=== PATIENT | female | born 1950 | race Caucasian/White ===

== ENCOUNTER 2016-10-13 18:22 | Inpatient (IN) | payer OTHER ==
[~2016-10-13] VITALS: Ht 162.6 cm; Wt 94.3 kg
[~2016-10-13 18:22] MED LIST: CARDIZEM60 M1 PO; COUMADIN6 M1 PO; FUROSEMIDE40 M1 PO; LEVOTHYROXINE137 MCG PO; LOPRESSOR100 M1 PO; METOPROLOL TART50 M1 PO
[2016-10-13 19:08] LABS: ABSOLUTE BASOPHIL COUNT 0 /CUMM (0.0-0.2); ABSOLUTE EOSINOPHIL COUNT 0 /CUMM (0.0-0.7); ABSOLUTE GRANULOCYTE CT 5.1 /CUMM (1.4-6.5); ABSOLUTE LYMPH COUNT 1.1 /CUMM (1.2-3.4); ABSOLUTE MONOCYTE COUNT 0.9 /CUMM (0.10-0.60); BASOPHIL % 0.4 % (0.0-2.0); EOSINOPHIL % 0.6 % (0-5); GRANULOCYTE % 71.5 % (42.2-75.2); HEMATOCRIT 41.6 % (37-47); MEAN CORPUSCULAR HGB 25.8 PG (27.0-31.0); MEAN CORPUSCULAR HGB CONC 31.6 G/DL (33.0-37.0); MEAN CORPUSCULAR VOLUME 81.4 FL (81.0-99.0); MEAN PLATELET VOLUME 8.1 FL (7.4-10.4); PLATELET COUNT 239 /CUMM (130-400); RBC DISTRIBUTION WIDTH 20.1 % (11.5-14.5); RED BLOOD CELL CT 5.11 /CUMM (4.20-5.40); WHITE BLOOD CELL COUNT 7.1 /CUMM (4.8-10.8)
--- NOTE | 2016-10-13 20:36 | ED GENERAL ADULT ---
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 ENGINEER WATERWORKS FOR FLUIDS IN LEGS Source: patient, old records Exam Limitations: no limitations Vital Signs & Intake/Output Vital Signs & Intake/Output Vital Signs Date Time Temp Pulse Resp B/P Pulse O2 O2 Flow FiO2 Ox Delivery Rate 10/13 2328 97.6 100 20 104/78 100 Nasal 2.0L Cannula 10/13 2319 99 Nasal 2.0L Cannula 10/13 2244 98.0 104 16 119/73 97 Nasal 2.0L Cannula 10/13 2137 98 Nasal 2.0L Cannula 10/13 2109 103 22 94 Nasal 2.0L Cannula 10/13 2106 97.6 105 22 121/73 89 Room Air 10/13 1839 97.3 106 20 117/75 94 Room Air Allergies Coded Allergies: No Known Allergies (04/21/16) Reconcile Medications Diltiazem HCl (Cardizem) 60 MG TABLET 1 TAB PO BID HEART (Reported) Furosemide 40 MG TABLET 1 TAB PO DAILY FLUID RETENTION Levothyroxine Sodium 137 MCG TABLET 1 TAB PO DAILY AC THYROID (Reported) Metoprolol Tartrate (Lopressor) 100 MG TABLET 1 TAB PO BID HTN (Reported) Warfarin Sodium (Coumadin) 6 MG TABLET 1 TAB PO 1700 BLOOD THINNER (Reported) Triage Note: PT WAS REFERED TO THE ED FOR EVALUATION SECONDARY TO BILATERAL LOWER EXTREMITIES SWELLING. + HX OF CHF. DENIED SOB. 94% RA. Triage Nurses Notes Reviewed? yes HPI: Patient is a 66-year-old female sent in from the CHF clinic for evaluation of abdominal distention, bilateral lower extremity edema, fluid oozing from bilateral lower extremities. Patient reports that she takes 40 mg of furosemide daily and also discussed the CHF clinic for IV diuresis with no improvement. Patient's speeder worker recommended patient come to the emergency department for further evaluation. Positive dyspnea with exertion and orthopnea. Patient reports that she has gained 2 pounds today. Dyspnea is mild at rest, severe with exertion. Patient reports that over the past couple of days she has been having clear fluid oozing from bilateral lower extremities and has redness to her right lower extremity. Patient denies fevers, chest pain, abdominal pain. (CRISTIAN PELAYO,SUMIT) Past History Travel History Traveled to [place] past 21 day No Medical History Any Pertinent Medical History? see below for history Neurological: vertigo EENT: NONE Cardiovascular: AFIB, hypertension Respiratory: NONE Gastrointestinal: NONE Hepatic: fatty liver on imaging studies Renal: NONE Musculoskeletal: NONE Psychiatric: NONE Endocrine: HYPOTHYROIDISM Blood Disorders: NONE Cancer(s): NONE NAIL SPECIALIST/Reproductive: NONE Other Medical Hx: vitiligo History of MRSA: No History of VRE: No History of CDIFF: No Pneumonia Vaccine: 09/14/14 Influenza Vaccine: 08/26/16 Surgical History Surgical History: non-contributory Psychosocial History Who do you live with Significant Other Services at Home None What is your primary language Mauritian Tobacco Use: Quit >30 days ago Family History Family History, If Any: FATHER, , Age 78; Cause: Myocardial infarct. MOTHER, , Age 89; Cause: Hip fracture. Hx Contributory? No (SUMIT JACKSON) Review of Systems Review of Systems Constitutional: Reports: malaise. Denies: chills, fever. EENTM: Reports: no symptoms. Respiratory: Reports: short of breath. Denies: cough. Cardiovascular: Reports: peripheral edema. Denies: chest pain. GI: Reports: distention. Denies: abdominal pain. Musculoskeletal: Reports: no symptoms. Skin: Reports: erythema (right lower extremity). Neurological/Psychological: Reports: no symptoms. Hematologic/Endocrine: Reports: no symptoms. Immunologic/Allergic: Reports: no symptoms. (SUMIT JACKSON) Physical Exam Physical Exam General Appearance: alert, awake, obese Head: atraumatic, normal appearance Eyes: Bilateral: PERRL, EOMI, other (icteric sclera). Ears, Nose, Throat: hearing grossly normal Neck: normal inspection, supple, full range of motion Respiratory: diminished lung sounds bilateral lung bases. Lungs clear bilateral mid and upper lung morales Cardiovascular: regular rate/rhythm, murmur Gastrointestinal: soft, non-tender Back: normal inspection, normal range of motion Extremities: 4+ bilateral lower extremity edema. Serous drainage from the right lower extremity with erythema right pretibial. Neurologic/Psych: awake, alert Skin: erythema right anterior leg with superficial ulceration Lymphatic: no anterior cervical osiris Core Measures ACS in differential dx? Yes ASA ordered for poss ACS? No-ACS ruled out CVA/TIA Diagnosis: No Severe Sepsis Present: No Septic Shock Present: No (SUMIT JACKSON) Progress Differential Diagnoses I considered the following diagnoses in my evaluation of the patient: CHF, liver failure, acute coronary syndrome, malignancy, cellulitis Plan of Care: Orders Procedure Date/time Status CHF Diet 10/14 B Active PROTHROMBIN TIME 10/14 0600 Active TROPONIN LEVEL 10/14 0200 Active EKG 10/14 0200 Active Pathway - chart 10/13 232 Active House Staff 10/13 2327 Active Patient Data 10/13 2327 Active Turn and Reposition 10/13 2327 Active Skin Integrity Protocol 10/13 2327 Active Skin/Pressure Ulcer Assess (Sk 10/13 2327 Active NUTRITIONAL CONSULT 10/13 2327 Active Code Status 10/13 232 Active Vital Signs 10/13 2319 Active Teach/Educate 10/13 2319 Active Nutritional Intake, Monitor 10/13 2319 Active Isolation 10/13 2319 Active Intake & Output 10/13 2319 Active Patient Care Conference 10/13 2319 Active Activity/Ambulation 10/13 2319 Active , Insertion/Removal/Asses 10/13 2212 Active CULTURE,URINE 10/13 2212 Active Intake & Output 10/13 211 Active Add-on Test (ER Only) 10/13 2103 Active Patient Data 10/13 2058 Active Admit to inpatient 10/13 2056 Active Vital Signs 10/13 2056 Active Code Status 10/13 2056 Complete Add-on Test (ER Only) 10/13 204 Active EKG 10/13 204 Active TROPONIN LEVEL 10/13 1851 Complete PROTHROMBIN TIME 10/13 1851 Complete COMPREHENSIVE METABOLIC PANEL 10/13 1842 Complete CBC WITHOUT DIFFERENTIAL 10/13 184 Complete B-TYPE NATRIURETIC PEP (BNP) 10/13 184 Complete Telemetry/Hat Conditioner 10/13 UNK Active Current Medications Sig/[place] Start time Last Medication Dose Stop Time Status Admin Warfarin Sodium 6 MG ONCE ONE 10/13 2344 UNVr (Coumadin) 10/13 2346 Laboratory Tests 10/13/16 1851: Anion Gap 10, Estimated GFR > 60, BUN/Creatinine Ratio 35.6 H, Glucose 77, Calcium 8.7, Total Bilirubin 3.7 H, AST 37 H, ALT 36, Alkaline Phosphatase 135 H, Troponin I 0.02, Xme-A-Fwucjaarnww Pept 1530 H, Total Protein 7.6, Albumin 3.3 L, Globulin 4.3 H, Albumin/Globulin Ratio 0.8 L, PT 24.6 H, INR 2.36 H, CBC w Diff NO MAN DIFF REQ, RBC 5.11, MCV 81.4, MCH 25.8 L, RDW 20.1 H, MPV 8.1, Gran % 71.5, Lymphocytes % 15.6 L, Monocytes % 11.9 H, Eosinophils % 0.6, Basophils % 0.4, Absolute Granulocytes 5.1, Absolute Lymphocytes 1.1 L, Absolute Monocytes 0.9 H, Absolute Eosinophils 0, Absolute Basophils 0, PUBS MCHC 31.6 L Microbiology 10/13 2240 URINE ROUT: Urine Culture - RECD Patient had a chest x-ray on 09/19 and 10/08. Results reviewed. Repeat chest x- ray deferred on initial exam. Discussed with Dr. Anthony. Dr. Anthony discussed with Dr. Richardson for telemetry admission (SUMIT JACKSON) Initial ED EKG: atrial fibrillation rate in the 100s, incomplete right bundle- branch block, no acute ST abnormalities Rhythm Strip: atrial fibrillation (SUMIT JACKSON) Departure Departure Time of Disposition: 2105 Condition: Stable Clinical Impression Primary Impression: CHF exacerbation Qualifiers: Congestive heart failure type: unspecified congestive heart failure type Qualified Code: I50.9 - Heart failure, unspecified Secondary Impressions: Anasarca, Elevated LFTs Referrals: MAICOL ROB,GABY Wooten (PCP/Family) Departure Forms: Customer Survey General Discharge Information (SUMIT JACKSON) Departure Disposition: STILL A PATIENT Admission Note Spoke With: SAMSON RICHARDSON MDKyler Documentation of Exam: Documentation of any treatments & extenuating circumstances including Concerns Regarding Discharge (functional status, medication knowledge or non-compliance, living conditions, etc.) that warrant an admission rather than observation: [ TELE MONITOR, DIURESIS, MONITOR I/O, SERIAL EKG/TROPONIN, CARDIOLOGY EVALUATION, ECHOCARDIOGRAM] PA/ROOFER HELPER Co-Sign Statement Statement: ED Attending supervision documentation- [X] I saw and evaluated the patient. I have also reviewed all the pertinent lab results and diagnostic results. I agree with the findings and the plan of care as documented in the PA's/ROOFER HELPER's documentation. [X] I have reviewed the ED Record and agree with the PA's/ROOFER HELPER's documentation. [] Additions or exceptions (if any) to the PAs/ROOFER HELPER's note and plan are summarized below: [] (CHAU ROB,DALE) Critical Care Note Critical Care Note Critical Care Time: non-applicable (CRISTIAN PELAYO,SUMIT)
--- NOTE | 2016-10-13 20:42 | NUR ---
PIERCE FOSTER AT BEDSIDE FOR EVAL AND PLAN
--- NOTE | 2016-10-13 21:01 | History & Physical ---
DIANA ROB,[facility] [place] 10/13/16 2100: General Information and HPI MD Statement: I have seen and personally examined LILIAM STEIN and documented this H&P. The patient is a 66 year old F who presented with a patient stated chief complaint of leg swelling and weeping. Source of Information: patient, old records Exam Limitations: no limitations History of Present Illness: Ms. Stein is a 66 y/o F with PMHx of atrial fibrillation on warfarin, mitral and aortic stenosis secondary to rheumatic fever, HFpEF, hypothyroidism, HTN and fatty liver, recently hospitalized here at [facility] (08/25/16-08/30/16) for CHF exacerbation, who is sent from CHF clinic for leg swelling and weeping. Today patient presented to her scheduled appointment at the CHF clinic where it was noted that her legs were swollen, red and oozing fluid. It was also noted that she had gained 2 pounds since her previous appointment. Patient states that the changes in her legs have been ongoing for a few weeks but is not sure as she has not paid attention to her legs. She reports that her legs are not painful but she does admit to leg pain after walking. Patient endorses increasing shortness of breath and orthopnea for the past few weeks and currently uses 3-4 pillows at night. She reports that she is complaint with her medications and has been following up with CHF clinic once or twice a week. An ECHO performed during last admission in August 2016 had shown LVEF of > 60% and mild concentric left ventricular hypertrophy. Allergies/Medications Allergies: Coded Allergies: No Known Allergies (04/21/16) Home Med list Diltiazem HCl (Cardizem) 60 MG TABLET 1 TAB PO BID HEART (Reported) Furosemide 40 MG TABLET 1 TAB PO DAILY FLUID RETENTION Levothyroxine Sodium 137 MCG TABLET 1 TAB PO DAILY AC THYROID (Reported) Metoprolol Tartrate (Lopressor) 100 MG TABLET 1 TAB PO BID HTN (Reported) Warfarin Sodium (Coumadin) 6 MG TABLET 1 TAB PO 1700 BLOOD THINNER (Reported) Compliance With Home Meds: GOOD Past History Travel History Traveled to [place] past 21 day No Medical History Neurological: vertigo EENT: NONE Cardiovascular: AFIB, aortic stenosis, diastolic CHF, hypertension, mitral stenosis, rheumatic fever Respiratory: NONE Gastrointestinal: NONE Hepatic: fatty liver Renal: NONE Musculoskeletal: NONE Psychiatric: NONE Endocrine: HYPOTHYROIDISM Blood Disorders: NONE Cancer(s): NONE 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 MOTHER, , Age 89; Cause: Hip fracture. Psychosocial History Who Do You Live With? lives with boyfriend, who is ill. Services at Home: None Primary Language: New Zealander, Salvadorean Smoking Status: Former Smoker (Smoked For 20 Years) ETOH Use: occasional use Illicit Drug Use: denies illicit drug use Living Will? no Power of Child Care Group Leader/HCP? no Functional Ability ADLs Independent: dressing, eating, toileting, bathing. Ambulation: independent IADLs Independent: shopping, housework, finances, food prep, telephone, transportation , medication admin. 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 EENTM: Reports: no symptoms. Cardiovascular: Reports: peripheral edema. Denies: chest pain, palpitations. Respiratory: Reports: short of breath. Denies: cough, sputum production. GI: Denies: abdominal pain, constipation, diarrhea, nausea, vomiting. Genitourinary: Reports: no symptoms. Musculoskeletal: Reports: no symptoms. Skin: Reports: see HPI. Neurological/Psychological: Reports: no symptoms. Hematologic/Endocrine: Reports: no symptoms. Immunologic/Allergic: Reports: no symptoms. All Other Systems: Reviewed and Negative Exam & Diagnostic Data Last 24 Hrs of Vital Signs/I&O Vital Signs Date Time Temp Pulse Resp B/P Pulse O2 O2 Flow FiO2 Ox Delivery Rate 10/14 0103 95 Nasal 2.0L Cannula 10/13 2328 97.6 100 20 104/78 100 Nasal 2.0L Cannula 10/13 2319 99 Nasal 2.0L Cannula 10/13 2244 98.0 104 16 119/73 97 Nasal 2.0L Cannula 10/138 98 Nasal 2.0L Cannula 10/13 2109 103 22 94 Nasal 2.0L Cannula 10/13 2106 97.6 105 22 121/73 89 Room Air 10/13 1840 97.3 106 20 117/75 94 Room Air Intake & Output 10/14 0800 10/14 0000 10/13 1600 Intake Total Output Total 300 Balance -300 Output, Urine 300 Patient 95.878 kg Weight Physical Exam General Appearance Oriented X3, No Acute Distress, Drowsy HEENT PERRLA, Mucous Membr. moist/pink Cardiovascular Normal S1, Normal S2, Irregular, Grade 3/6 Systolic Murmur Lungs Diminished Breath Sounds Abdomen Soft, No Tenderness, Distended, Positive Bowel Sounds Neurological No Gross Focal Deficits Noted Extremities No Clubbing, No Cyanosis, Bilateral Lower Extremities with 3+ Pitting Edema and Erythema (R >> L), Cool to Touch and Nontender to Palpation Vascular DP Pulses +1 Bilaterally Last 24 Hrs of Labs/Kasi: Laboratory Tests 10/13/16 1851: Anion Gap 10, Estimated GFR > 60, BUN/Creatinine Ratio 35.6 H, Glucose 77, Calcium 8.7, Total Bilirubin 3.7 H, AST 37 H, ALT 36, Alkaline Phosphatase 135 H, Troponin I 0.02, Wax-P-Hxoqnxczqqf Pept 1530 H, Total Protein 7.6, Albumin 3.3 L, Globulin 4.3 H, Albumin/Globulin Ratio 0.8 L, PT 24.6 H, INR 2.36 H, CBC w Diff NO MAN DIFF REQ, RBC 5.11, MCV 81.4, MCH 25.8 L, RDW 20.1 H, MPV 8.1, Gran % 71.5, Lymphocytes % 15.6 L, Monocytes % 11.9 H, Eosinophils % 0.6, Basophils % 0.4, Absolute Granulocytes 5.1, Absolute Lymphocytes 1.1 L, Absolute Monocytes 0.9 H, Absolute Eosinophils 0, Absolute Basophils 0, PUBS MCHC 31.6 L Microbiology 10/13 2240 URINE ROUT: Urine Culture - RECD Diagnostic Data EKG Results Atrial fibrillation HR 106 RBBB QTc 484 CXR Results Recurrent left-sided pleural effusion filling approximately one half the left hemithorax. Assessment/Plan Assessment: 66 y/o F with PMHx of atrial fibrillation on warfarin, HFpEF and mitral and aortic stenosis secondary to rheumatic fever who presents from CHF clinic with bilateral lower extremity edema and weeping. #Acute exacerbation of CHF: Orthopnea, dyspnea on exertion and bilateral lower extremity edema on initial presentation consistent with CHF exacerbation. History of HFpEF and mitral and aortic stenosis 2/2 rheumatic fever. Most recent ECHO in August 2016 with LVEF > 60% and mild concentric left ventricular hypertrophy. S/p 40 and 20 mg IV Lasix in the ED. * Admit to the telemetry floor. * Cardiology consult in the AM. Appreciate their recs. * Strict I/Os and daily weights. * Start Lasix 40 mg IV BID in the AM. #Recurrent left-sided pleural effusion: CXR with recurrent left-sided pleural effusion filling approximately one half the left hemithorax. S/p thoracentesis on 08/28/2016 with pleural fluid studies consistent with psuedoexudative etiology. * Pulmonology consult in the AM. * Consider thoracentesis although this will not be possible in the AM as patient just received one dose of warfarin. #Bilateral lower extremity edema/weeping: Bilateral lower extremities with edema , redness and weeping, R >> L. Current presentation is not consistent with cellulitis as patient in the absence of warmth and tenderness on exam as well as fever and leukocytosis. Bilateral lower extremities cool to touch concerning for PAD. * Monitor off antibiotics. * Watch fever and WBC count. #Atrial fibrillation: INR therapeutic at 2.36 on admission. Controlled ventricular response. Takes diltiazem 60 mg PO BID and warfarin 6 mg PO QD. * Check INR daily and dose warfarin accordingly to keep INR between 2 and 3. * Continue prior to admission diltiazem for rate control. * Hold further warfarin if decision is made to pursue thoracentesis. #Hypothyroidism: * Continue prior to admission levothyroxine 137 mcg PO AC. Diet: CHF DVT PPx: Warfarin and ALPs CODE: FULL As Ranked By This Provider Problem List: 1. Acute exacerbation of CHF (congestive heart failure) Qualifiers Congestive heart failure type: unspecified congestive heart failure type Qualified Code: I50.9 - Heart failure, unspecified 2. Recurrent left pleural effusion 3. Atrial fibrillation 4. Hypothyroidism 5. Bilateral lower extremity edema Core Measures/Miscellaneous Acute Coronary Syndrome ACS Diagnosis: No Cerebrovascular Accident CVA/TIA Diagnosis: No Congestive Heart Failure CHF Diagnosis: Yes Date of most recent Echo: 08/27/16 Last Known EF %: 60 Venous Thromboembolism VTE Risk Factors: Acute medical illness, Age > 40, CHF or Resp failure, Obesity VTE Prophylaxis Ordered Inpt: Mech & Pharm No Mech VTE prophylaxis d/t: No contraindications No VTE Pharm Prophylaxis d/t: No contraindications VTE Diagnosis: No VTE Type: NONE VTE Confirmed by (Test): NONE Severe Sepsis Severe Sepsis Present: No Septic Shock Septic Shock Present: No Miscellaneous Documentation Attending [facility] Primary Care Physician: GABY MILIAN MD Patient sees these Specialists Bilingual Interpreter Forest Wolf MD Level of Patient Care: Telemetry [facility] 10/14/16 0439: Attending MD Review Statement Attending Statement Attending MD Statement: examined this patient, discuss w/resident/PA/PRECISE WINDER, agreed w/resident/PA/PRECISE WINDER Attending Assessment/Plan: 66 yo F with h/o HTN, Afib on coumadin, hypothyroidism, chronic HFpEF, last admitted to [facility] (Aug 2016) for heart failure exacerbation with left pleural effusion pseudoexudate s/p thoracentesis, is sent in from CHF clinic for worsening LE edema and weeping wounds. C/o dyspnea and orthopnea, abdominal distension. Weight gain of 2 lbs. Seen at CHF clinic twice a week and receives IV lasix. Vitals: sats 89% RA --> 95% on 2L, HR 100-110's, BP 104/78. Exam: tachypneic, JVD+, Chest reduced to absent breath sounds to left chest upto mid half, Heart S1S2 irreg, systolic murmur+, B/l LE 3+pitting edema with serous drainage with surrounding mild erythema. Labs INR 2.36, bicarb 34, BUN 32, T. Bili 3.7, AST 37 , trop neg, proBNP 1530, EKG: Afib 106, RBBB. CXR: recurrent left sided pleural effusion filling one half left hemithorax. Echo (Aug 2016): EF > 60%, mild to moderate aortic stenosis, severe TR, moderate MS. 1. Acute hypoxic respiratory failure in the setting of decompensation of heart failure with preserved EF and valvular disorder. Daily weights, strict I/Os, IV lasix 40 BID, rule out ACS, Cardio consult, hold off on repeat echo for now. Pulm consult and possible thoracentesis in AM due to increasing left pleural effusion. Replete electrolytes. Check TSH, free T4. No evidence of LE cellulitis , no need for antibiotics. 2. Afib, not in rapid ventricular response. Ct. Cardizem and metoprolol. Coumadin dosed tonight. Would hold off further coumadin, if plans for thoracentesis. DVT ppx therapeutic INR on coumadin. Full code. BRIE RAMÍREZ MD 10/14/16 0525: Resident Review Statement Resident Statement: examined this patient, discussed with graphic design intern, agreed with graphic design intern Other Findings: 66 YO F with pmh significant for AF on coumadin, HFpEF, HTN, hypothyroidism presents from home after going to the CHF clinic today, and found to have bilateral lower extremity swelling with weeping. Acute exacerbation of CHF, recieved 40mg IV lasix in ER will give another 20 mg tonight, and monitor Is and Os as well as daily weights. Will trend troponins and ekgs. Dose lasix in am while monitoring BEP and diuresis. Recurrent left sided pleural effusion, increased since last image on 10/08. She was tapped one month ago, found to have exudative effusion by lights criteria. Oxygen saturation >92 on 2l, if her respiratory status continues to decline will need thoracocentesis. She was dosed with coumadin last night. Hold off on further dosing at this time. AFib, heart rate well controlled continue current home regimen, INR therapeutic, however would hold off on further dosing in light of increasing effusion. She will need cardiology and pulmonology consultation in am
[2016-10-13 21:24] LABS: PT 24.6 SEC (9.4-12.5)
--- NOTE | 2016-10-13 21:37 | NUR ---
IV ESTABLISHED AND MEDICATED WITH LASIX PER eMAR. BILAT LOWER EXTREMITIES WHEEPING CLEAR FLUID. R>L AND RLE VERY COLD TO TOUCH. +PULSES. O2 SAT 89% RA AND IMPROVED TO 98% ON 2LNC
--- NOTE | 2016-10-13 21:40 | NUR ---
HOUSE STAFF AT BEDSIDE FOR EVAL
--- NOTE | 2016-10-13 21:42 | NUR ---
Emergency Dept [facility] Admit Note: To be admitted to [facility] by DR RICHARDSON with CONGESTIVE HEART FAILURE as the diagnosis, to [id number] location. Nursing Creping Machine Operator Helper and admitting notified 10/13/16 at 5008
--- NOTE | 2016-10-13 22:45 | NUR ---
16FR METERED TYLER INSERTED MAINTAINING STERILE TECHNIQUE. 300ML CLEAR YELLOW URINE OUTPUT ON INSERTION. TOLERATED WELL. TRIO OF URINE SENT. MED WITH LASIX PER EMAR.
--- NOTE | 2016-10-13 22:47 | RADIOLOGY REPORT ---
EXAMINATION: XR PORTABLE CHEST CLINICAL INFORMATION: 66-year-old female with shortness of breath. COMPARISON: Chest x-ray performed on 10/08/2016. Multiple chest x-ray done August 2016. TECHNIQUE: Portable AP semierect view of the chest was obtained. FINDINGS: The recurring left-sided pleural effusion has definitely increased in volume since 09/03/2016. A thoracentesis was performed on 08/28/2016. The aerated lungs are clear. There is no visible right pleural effusion. The heart remains enlarged. Left atrium is significantly enlarged, (presumed mitral insufficiency). IMPRESSION: Recurrent left-sided pleural effusion filling approximately one half the left hemithorax.
[2016-10-13 23:29] VITALS: BP 104/78
--- NOTE | 2016-10-14 04:39 | Admission Certification ---
Admission Certification Certification Statement - As attending physician, I certify that at the time of - admission, based on clinical presentation, severity of - symptoms, need for further diagnostic testing and - therapeutic interventions, and risk of adverse outcomes - without in-hospital treatment, in my clinical assessment, - this patient requires an acute hospital stay for a minimum - of two nights or longer. I have also considered psychsocial - factors such as support system, advanced age, financial - issues, cognitive issues, and failed out-patient treatments, - past re-admission history, safety of patient, and lack of - compliance as applicable. Specific rationale supporting this admission is: Acute exacerbation of diastolic heart failure, with recurrent left sided pleural effusion.
--- NOTE | 2016-10-14 07:29 | PN- Housestaff ---
JIA ROB,[facility] 10/14/16 0729: Subjective Follow-up For: CHF exacerbation Subjective: Patient seen and examined this morning. She was lying in bed in no acute distress, she is currently satting in mid 90s on 2 L of nasal cannula oxygen, remains afebrile, white count stable, no other complaints. Review of Systems Constitutional: Reports: see HPI. Objective Last 24 Hrs of Vital Signs/I&O Vital Signs Date Time Temp Pulse Resp B/P Pulse O2 O2 Flow FiO2 Ox Delivery Rate 10/14 1415 104 110/64 10/14 1033 104 100/76 10/14 0931 Nasal 2.0L Cannula 10/14 0828 97.4 104 20 100/76 96 Nasal 2.0L Cannula 10/14 0800 96 Nasal 2.0L Cannula 10/14 0103 95 Nasal 2.0L Cannula 10/13 2329 97.6 100 20 104/78 100 Nasal 2.0L Cannula 10/13 2320 99 Nasal 2.0L Cannula 10/13 2245 98.0 104 16 119/73 97 Nasal 2.0L Cannula 10/13 2138 98 Nasal 2.0L Cannula 10/13 2110 103 22 94 Nasal 2.0L Cannula 10/13 2107 97.6 105 22 121/73 89 Room Air 10/13 1840 97.3 106 20 117/75 94 Room Air Intake & Output 10/14 1600 10/14 0800 10/14 0000 Intake Total 640 150 Output Total 700 800 300 Balance -60 -650 -300 Intake, Oral 640 150 Number 0 0 Bowel Movements Output, Urine 700 800 300 Patient 95.878 kg 95.878 kg Weight Physical Exam General Appearance: Alert, Cooperative, No Acute Distress Cardiovascular: Normal S1, Normal S2, irregularly irregular Lungs: generalized bilateral wheezing, rhonchi Abdomen: Normal Bowel Sounds, Soft, No Tenderness Extremities: No Clubbing, No Cyanosis, marked edema bilateral lower extremities 3+ Current Medications: Current Medications Sig/[place] Start time Last Medication Dose Route Stop Time Status Admin Acetaminophen 650 MG Q6P PRN 10/14 0545 AC PO Diltiazem HCl 60 MG BID 10/14 1000 AC 10/14 PO 1033 Furosemide 40 MG 7:30 AM, & 4:30 PM 10/14 0730 AC 10/14 IV 1033 Furosemide 0 .STK-MED ONE 01/30 2235 DC IV Furosemide 20 MG ONCE ONE 10/13 2215 DC 10/13 IV 10/13 221 2244 Furosemide 0 .STK-MED ONE 10/13 2115 DC IV Furosemide 40 MG ONCE ONE 10/13 2100 DC 10/13 IV PUSH 10/13 2100 2120 Levothyroxine Sodium 0.137 MG DAILY AC 10/14 0700 AC 10/14 PO 1033 Melatonin 5 MG AT BEDTIME 10/14 2200 AC PO Metoprolol Tartrate 100 MG BID 10/14 1000 AC 10/14 PO 1415 Nystatin 1 FRANCK BID 10/14 0033 AC 10/14 TOP 1034 Patient Medication 1 ED .STK-MED ONE 10/14 1356 DC Teaching ED 10/14 1357 Warfarin Sodium 6 MG ONCE ONE 10/13 2345 DC 10/14 PO 10/13 2345 0045 Last 24 Hrs of Lab/Kasi Results Last 24 Hrs of Labs/Mics: Laboratory Tests 10/14/16 0648: Troponin I 0.02 10/14/16 0648: TSH 4.710 H, Free T4 1.81, PT 21.4 H, INR 2.05 H 10/14/16 0200: Troponin I 0.02 10/13/16 1851: Anion Gap 10, Estimated GFR > 60, BUN/Creatinine Ratio 35.6 H, Glucose 77, Calcium 8.7, Total Bilirubin 3.7 H, AST 37 H, ALT 36, Alkaline Phosphatase 135 H, Troponin I 0.02, [id number] Pept 1530 H, Total Protein 7.6, Albumin 3.3 L, Globulin 4.3 H, Albumin/Globulin Ratio 0.8 L, PT 24.6 H, INR 2.36 H, CBC w Diff NO MAN DIFF REQ, RBC 5.11, MCV 81.4, MCH 25.8 L, RDW 20.1 H, MPV 8.1, Gran % 71.5, Lymphocytes % 15.6 L, Monocytes % 11.9 H, Eosinophils % 0.6, Basophils % 0.4, Absolute Granulocytes 5.1, Absolute Lymphocytes 1.1 L, Absolute Monocytes 0.9 H, Absolute Eosinophils 0, Absolute Basophils 0, PUBS MCHC 31.6 L Microbiology 10/13 2240 URINE ROUT: Urine Culture - RES Assessment/Plan Assessment: 66 y/o F with PMHx of atrial fibrillation on warfarin, HFpEF and mitral and aortic stenosis secondary to rheumatic fever who presents from CHF clinic with bilateral lower extremity edema and weeping. #Acute exacerbation of CHF: Orthopnea, dyspnea on exertion and bilateral lower extremity edema on initial presentation consistent with CHF exacerbation. History of HFpEF and mitral and aortic stenosis 2/2 rheumatic fever. Most recent ECHO in August 2016 with LVEF > 60% and mild concentric left ventricular hypertrophy. S/p 40 and 20 mg IV Lasix in the ED. we'll continue to monitor on telemetry floor, cardiology and pulmonology has remitted to hold Coumadin for now and watch INR to trend down, for possible thoracentesis if needed, patient started on IV Lasix 40 mg daily twice a day, with strict I's and O's and daily weights (urinary catheter temporarily for close I's and O's monitoring) Will follow-up a.m. creatinine and other lytes while on Lasix. #Recurrent left-sided pleural effusion: CXR with recurrent left-sided pleural effusion filling approximately one half the left hemithorax. S/p thoracentesis on 08/28/2016 with pleural fluid studies consistent with psuedoexudative etiology. As patient INR high, and currently patient has no pulmonary complaints secondary to pleural effusion we'll hold off of thoracentesis for now. Will trend INR, and depending on patient's clinical situation we'll decide on thoracentesis. #Bilateral lower extremity edema/weeping: Bilateral lower extremities with edema , redness and weeping, R >> L. Current presentation is not consistent with cellulitis as patient in the absence of warmth and tenderness on exam as well as fever and leukocytosis. Bilateral lower extremities cool to touch concerning for PAD. We are currently in a watch off antibiotics as patient does not have any fever or white count #Atrial fibrillation: INR therapeutic at 2.36 on admission. Controlled ventricular response. Takes diltiazem 60 mg PO BID and warfarin 6 mg PO QD. * Hold further warfarin if decision is made to pursue thoracentesis. #Hypothyroidism: * Continue prior to admission levothyroxine 137 mcg PO AC. Diet: CHF DVT PPx: Warfarin and ALPs CODE: FULL Problem List: 1. Hypothyroidism 2. Bilateral lower extremity edema 3. Atrial fibrillation 4. Recurrent left pleural effusion Pain Ratin Pain Location: None Pain Goal: Remain pain free Pain Plan: Tylenol for mild pain 1-3 Tomorrow's Labs & Rationales: INR for Coumadin dosing BEP for creatinine monitoring while being on Lasix ANN SMART MD 10/14/16 1656: Attending MD Review Statement Attending Statement Attending MD Statement: examined this patient, discuss w/resident/PA/CHRISTIAN EDUCATION DIRECTOR, agreed w/resident/PA/CHRISTIAN EDUCATION DIRECTOR, reviewed EMR data (avail), reviewed images, amended to note Attending Assessment/Plan: The patient was seen and discussed with house staff. Agree with plan of care as outlined.
[2016-10-14 08:28] VITALS: BP 100/76
--- NOTE | 2016-10-14 08:32 | Cons- Pulmonary ---
ROSY LEARY 10/14/16 0830: General Information and HPI Consulting Request Date of Consult: 10/14/16 Requested By: DEBRA ROB Source of Information: patient, old records Exam Limitations: no limitations History of Present Illness: 66 YO F with pmh significant for AF on coumadin, HFpEF and ejection fraction is more than 60% was admitted to telemetry for CHF decompensation. Patient lives with his , and independent in taking care of herself. According to patient she has been compliant with her Lasix and diets for congestive heart failure. For the past month she has noticed increasing bilateral swelling and weeping of her lower extremities, worsening orthopnea( currently using 2 pillows at 30 head elevation), she also noticed increasing weights. Patient denies any increase in abdominal girth and abdominal discomfort (more specifically right upper quadrant). As a follow-up visit patient saw Dr. Wolf in congestive heart failure clinic who advised the patient to go to the emergency room and get admitted to the hospital for further management of her heart failure. Patient also has past medical history of HTN, hypothyroidism. On admission, her vitals were sats 89% RA --> 95% on 2L, HR 100-110's, BP 104/78. Allergies/Medications Allergies: Coded Allergies: No Known Allergies (04/21/16) Home Med List: Diltiazem HCl (Cardizem) 60 MG TABLET 1 TAB PO BID HEART (Reported) Furosemide 40 MG TABLET 1 TAB PO DAILY FLUID RETENTION Levothyroxine Sodium 137 MCG TABLET 1 TAB PO DAILY AC THYROID (Reported) Metoprolol Tartrate (Lopressor) 100 MG TABLET 1 TAB PO BID HTN (Reported) Warfarin Sodium (Coumadin) 6 MG TABLET 1 TAB PO 1700 BLOOD THINNER (Reported) Review of Systems Review of Systems Constitutional: Reports: see HPI. EENTM: Denies: blurred vision, double vision, visual changes, eye pain, eye drainage, eye tearing, icterus, ear discharge, ear pain, ear redness, hearing changes, nasal congestion, epistaxis, nasal pain, throat pain, throat swelling, mouth pain, tooth pain. Cardiovascular: Reports: see HPI, edema. Denies: chest pain, orthopena, palpitations, peripheral edema, syncope. Respiratory: Reports: orthopnea, short of breath. Denies: cough, hemoptysis, sputum production, stridor, wheezing. GI: Denies: abdominal pain, bloating, constipation, diarrhea, distention, bowel incontinence, melena, nausea, bloody stool, changes in stool, vomiting, steatorrhea. Genitourinary: Reports: see HPI. Denies: discharge, dysuria, frequency, hematuria, hesitation, nocturia, pain, urgency. Skin: Reports: see HPI, change in skin color, erythema. 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 MOTHER, , Age 89; Cause: Hip fracture. Psychosocial History Where Do You Live? Home Who Do You Live With? lives with boyfriend, who is ill. Services at Home: None Primary Language: Yakut, Thai Smoking Status: Former Smoker Living Will? no Power of Press Secretary/HCP? no Functional Ability ADLs Independent: dressing, eating, toileting, bathing. Ambulation: independent IADLs Independent: shopping, housework, finances, food prep, telephone, transportation , medication admin. 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 Exam & Diagnostic Data Last 24 Hrs of Vital Signs/I&O Vital Signs Date Time Temp Pulse Resp B/P Pulse O2 O2 Flow FiO2 Ox Delivery Rate 10/14 0728 97.4 104 20 100/76 96 Nasal 2.0L Cannula 10/14 0800 96 Nasal 2.0L Cannula 10/14 0103 95 Nasal 2.0L Cannula 10/13 2328 97.6 100 20 104/78 100 Nasal 2.0L Cannula 10/130 99 Nasal 2.0L Cannula 10/13 2245 98.0 104 16 119/73 97 Nasal 2.0L Cannula 10/138 98 Nasal 2.0L Cannula 10/130 103 22 94 Nasal 2.0L Cannula 10/13 2106 97.6 105 22 121/73 89 Room Air 10/13 1840 97.3 106 20 117/75 94 Room Air Intake & Output 10/14 1600 10/14 0800 10/14 0000 Intake Total 150 Output Total 800 300 Balance -650 -300 Intake, Oral 150 Number 0 Bowel Movements Output, Urine 800 300 Patient 211 lb Weight Physical Exam General Appearance: well developed/nourished, no apparent distress, alert, awake , anxious, obese Head: normal appearance Ears, Nose, Throat: mucosal membranes are dry Neck: supple, JVD Respiratory: decreased breath sounds, rhonchi, wheezing, generalize wheezing Cardiovascular: JVD, irregularly irregular, positive hepatojugular reflux, marked anasarca up to level of umbilicus Peripheral Pulses: 2+ brachial (R), 2+ brachial (L) Gastrointestinal: normal bowel sounds, soft, non-tender Rectal: deferred Back: normal inspection Extremities: +2-3 pitting edema bilateral lower extremities Neurologic/Psych: awake, alert, oriented x 3 Cranial Nerves: normal speech, PERRL Last 48 Hrs of Labs/Kasi: Laboratory Tests 10/14/16 0648: Troponin I 0.02 10/14/16 0648: TSH 4.710 H, Free T4 1.81, PT 21.4 H, INR 2.05 H 10/14/16 0200: Troponin I 0.02 10/13/16 1851: Anion Gap 10, Estimated GFR > 60, BUN/Creatinine Ratio 35.6 H, Glucose 77, Calcium 8.7, Total Bilirubin 3.7 H, AST 37 H, ALT 36, Alkaline Phosphatase 135 H, Troponin I 0.02, Bel-D-Fbnivobulcm Pept 1530 H, Total Protein 7.6, Albumin 3.3 L, Globulin 4.3 H, Albumin/Globulin Ratio 0.8 L, PT 24.6 H, INR 2.36 H, CBC w Diff NO MAN DIFF REQ, RBC 5.11, MCV 81.4, MCH 25.8 L, RDW 20.1 H, MPV 8.1, Gran % 71.5, Lymphocytes % 15.6 L, Monocytes % 11.9 H, Eosinophils % 0.6, Basophils % 0.4, Absolute Granulocytes 5.1, Absolute Lymphocytes 1.1 L, Absolute Monocytes 0.9 H, Absolute Eosinophils 0, Absolute Basophils 0, PUBS MCHC 31.6 L Assessment/Plan Impression/Plan: The 66-year-old woman was admitted for hypoxic respiratory failure in the setting of congestive heart failure decompensation and found to have recurrence of his left-sided pleural effusion. Patient's pertinent data proBNP 1530, EKG: Afib 106, RBBB. CXR: recurrent left sided pleural effusion filling one half left hemithorax. Echo (Aug 2016): EF > 60%, mild to moderate aortic stenosis, severe TR, moderate MS. List of problems and plan 1. Acute hypoxic respiratory failure: Congestive heart failure versus/in addition to left-sided pleural effusion. * IV diuresis with Lasix 40 mg twice a day in order to maintain negative fluid balance * Daily weights; restrict ins and outs; low salt diets * Manage per cardiology #Recurrent left-sided pleural effusion: CXR with recurrent left-sided pleural effusion filling approximately one half the left hemithorax. S/p thoracentesis on 08/28/2016 with pleural fluid studies consistent with exudative etiology. Current recurrence possibly related to decompensation of heart failure currently on IV diuresis. Continue close observation. * If patient for effusion did not resolve with IV diuresis, she might need therapeutic diagnostic ultrasound-guided thoracocentesis * Plan for now continue IV diuresis. Lasix 40 mg twice a day * Nonresponsive pleural effusion to IV diuresis may indicate repeat ultrasound- guided thoracocentesis * Repeat CXR in the am 2. Afib, not in rapid ventricular response. * Continue Cardizem and metoprolol. * Hold Coumadin DVT ppx therapeutic INR on coumadin. Full code. #Acute exacerbation of CHF: Orthopnea, dyspnea on exertion and bilateral lower extremity edema on initial presentation consistent with CHF exacerbation. Most recent ECHO in August 2016 with LVEF > 60% and mild concentric left ventricular hypertrophy. S/p 40 and 20 mg IV Lasix in the ED. * Admit to the telemetry floor. * Cardiology consult in the AM. Appreciate their recs. * Strict I/Os and daily weights. * Hold off on further Lasix this evening. * Pulmonology consult in the AM. * Consider thoracentesis although this will not be possible in the AM as patient just received one dose of warfarin. Problem List: 1. Recurrent left pleural effusion 2. Anasarca 3. Acute exacerbation of CHF (congestive heart failure) Consult Acknowledgment - Thank you for your consult request. ISMAEL PETERSON MD 10/14/16 0913: Assessment/Plan Recommendations: Ismael Chávez M.D. have examined this patient, reviewed available EMR data, personally reviewed images, discussed with resident/PA/FISHER TRAP, discussed management plan with housestaff and nursing staff, discussed managment plan all of healthcare providers, discussed management plan with patient and/or family, agreed with resident/PA/FISHER TRAP. The past history and parts of the chart have been autopopulated. Impression 66 year old woman with decompensated acute exacerbation of heart failure. Plan -trend INR, when reaches 1.5 or below would recommend diagnostic and therapeutic drainage of pleural fluid if still remains after diuresis -repeat CXR tomorrow am -keep off coumadin if ok with cardiology -monitor INR daily Consult Acknowledgment - Thank you for your consult request.
[2016-10-14 09:00] LABS: PT 21.4 SEC (9.4-12.5)
--- NOTE | 2016-10-14 10:37 | Cons- Cardiology ---
General Information and HPI Consulting Request Date of Consult: 10/14/16 Requested By: DEBRA ROB,JOHNNY Reason for Consult: Progressive biventricular heart failure. Source of Information: patient, old records Exam Limitations: poor historian History of Present Illness: Mrs. Ruth Ruiz is a 66-year-old female with a long-standing history of hypertension, hypothyroidism, rheumatic heart disease with severe range mitral stenosis, pulmonary hypertension, tricuspid regurgitation, chronic atrial fibrillation for which he is on chronic warfarin anticoagulation, and some medical compliance issues who has become symptomatic from her rheumatic valvular disease over the past couple of months and who was recommended ED evaluation for worsening symptoms of shortness of breath, weight gain, abdominal distention, orthopnea, and increased bilateral lower extremity edema with oozing from the extremities etc., after my discussion with nursing at the [facility] yesterday, where she was being seen. In the emergency department a CXR was performed that revealed recurrent left- sided pleural effusion filling approximately one half the left hemithorax. She was admitted to (08/25-08/30/2016) for similar complaints. She had no acute electrocardiographic changes observed, ruled out for myocardial infarction by serial cardiac enzymes hospitalized here, and improved with aggressive intravenous diuretic therapy, and left thoracentesis. An echocardiogram was performed (08/26/2016) that revealed a normal-sized left ventricle with mild concentric left ventricular hypertrophy and normal systolic function with an estimated EF of greater than 60%, severe left atrial dilatation, moderate right atrial dilatation, mild right ventricular dilatation, rheumatic/age-related valvular changes, no pericardial effusion, left pleural effusion, mildly dilated proximal ascending aorta, and markedly dilated inferior vena cava. The Doppler portion of the study revealed at least moderate range mitral stenosis, trace mitral regurgitation, mild-moderate aortic stenosis, mild aortic regurgitation dictation, severe tricuspid regurgitation, mild pulmonic regurgitation, and severe pulmonary hypertension with an estimated PA systolic pressure of 61 mmHg. After she had sufficiently improved, she was discharged to home and underwent outpatient right and left heart catheterization at [facility] (10/01/2016) which revealed: Angiographic findings: LM-patent, LAD-mild luminal distal irregularities, LCx- mild luminal irregularities in the distal OM, RCA-dominant and patent, LV gram- EF 60%. Hemodynamic findings: PCW pressure: 44/52 (44) PA pressure: 60/39 (48) RV pressure: 64/20/27 LV pressure: 97/18/26 Ao pressure: 99/72 (81) Saturations: RA: 57% PA: 56% Ao: 95% Cardiac output: Sarika: 3.02 L/min. TD: 7.73 L/min. Mitral valve: Gradient (mean): 16.92 mmHg. Area: 0.89 cm2. Based on the cardiac catheterization findings management options were discussed with Mrs. Ruiz and her sons, as well as, cardiothoracic surgery (Stefan De Dios M.D.). After the risk, benefits, and alternatives to cardiothoracic surgery were discussed in detail and questions posed by the family addressed. The consensus was that we would proceed with mitral valve replacement and tricuspid valve repair when her cardiac status was optimized. Allergies/Medications Allergies: Coded Allergies: No Known Allergies (04/21/16) Home Med List: Diltiazem HCl (Cardizem) 60 MG TABLET 1 TAB PO BID HEART (Reported) Furosemide 40 MG TABLET 1 TAB PO DAILY FLUID RETENTION Levothyroxine Sodium 137 MCG TABLET 1 TAB PO DAILY AC THYROID (Reported) Metoprolol Tartrate (Lopressor) 100 MG TABLET 1 TAB PO BID HTN (Reported) Warfarin Sodium (Coumadin) 6 MG TABLET 1 TAB PO 1700 BLOOD THINNER (Reported) Current Medications: Current Medications Sig/[place] Start time Last Medication Dose Route Stop Time Status Admin Acetaminophen 650 MG Q6P PRN 10/14 0545 AC PO Diltiazem HCl 60 MG BID 10/14 1000 AC 10/14 PO 1033 Furosemide 40 MG 7:30 AM, & 4:30 PM 10/14 0730 AC 10/14 IV 1033 Furosemide 20 MG ONCE ONE 10/13 2215 DC 10/13 IV 10/13 2216 2244 Furosemide 0 .STK-MED ONE 10/13 2115 DC IV Furosemide 40 MG ONCE ONE 10/13 2100 DC 10/13 IV PUSH 10/13 2101 2120 Levothyroxine Sodium 0.137 MG DAILY AC 10/14 0700 AC 10/14 PO 1033 Metoprolol Tartrate 100 MG BID 10/14 1000 AC PO Nystatin 1 FRANCK BID 10/14 0033 AC 10/14 TOP 1034 Warfarin Sodium 6 MG ONCE ONE 10/13 2345 DC 10/14 PO 10/13 2346 0045 Review of Systems Review of Systems: A 14 point system review was obtained and was non contributory, other than as above. 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 MOTHER, , Age 89; Cause: Hip fracture. Psychosocial History Where Do You Live? Home Who Do You Live With? lives with boyfriend, who is ill. Services at Home: None Primary Language: Bhutanese, Wolof Smoking Status: Former Smoker Living Will? no Power of Family Service Caseworker/HCP? no Functional Ability ADLs Independent: dressing, eating, toileting, bathing. Ambulation: independent IADLs Independent: shopping, housework, finances, food prep, telephone, transportation , medication admin. 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 Exam & Diagnostic Data Vital Signs and I&O Vital Signs Date Time Temp Pulse Resp B/P Pulse O2 O2 Flow FiO2 Ox Delivery Rate 10/14 1033 104 100/76 10/14 0931 Nasal 2.0L Cannula 10/14 0728 97.4 104 20 100/76 96 Nasal 2.0L Cannula 10/14 0800 96 Nasal 2.0L Cannula 10/14 0103 95 Nasal 2.0L Cannula 10/13 2328 97.6 100 20 104/78 100 Nasal 2.0L Cannula 10/130 99 Nasal 2.0L Cannula 10/13 2244 98.0 104 16 119/73 97 Nasal 2.0L Cannula 10/138 98 Nasal 2.0L Cannula 10/13 2109 103 22 94 Nasal 2.0L Cannula 10/13 2106 97.6 105 22 121/73 89 Room Air 10/13 1840 97.3 106 20 117/75 94 Room Air Intake & Output 10/14 1600 10/14 0800 10/14 0000 10/13 1600 10/13 0800 10/13 0000 Intake Total 150 Output Total 800 300 Balance -650 -300 Intake, Oral 150 Number 0 Bowel Movements Output, Urine 800 300 Patient 211 lb Weight Physical Exam: Well-developed, overweight female in no acute distress. Vital signs: See above. HEENT: Normocephalic, atraumatic, EOMI, moist mucous membranes. Neck: No JVD, no bruits. Lungs: Decreased breath sounds snf up on the left and at the right base. Heart: S1, S2 (irregularly, irregular) with grade 1-2/6 systolic murmur best heard at the base, grade 1/6 diastolic murmur heard near the apex. No gallop or rub appreciated. PMI fifth ICS at [facility]. Extremities: 2-3+ bilateral lower extremity edema with erythema. Labs/Kasi Results: Laboratory Tests 10/14 10/14 10/14 10/13 0648 0648 0200 1851 Chemistry Sodium (137 - 145 mmol/L) 139 Potassium (3.5 - 5.1 mmol/L) 4.2 Chloride (98 - 107 mmol/L) 95 L Carbon Dioxide (22 - 30 mmol/L) 34 H Anion Gap (5 - 16) 10 BUN (7 - 17 mg/dL) 32 H Creatinine (0.5 - 1.0 mg/dL) 0.9 Estimated GFR (>60 ml/min) > 60 BUN/Creatinine Ratio (7 - 25 %) 35.6 H Glucose (65 - 99 mg/dL) 77 Calcium (8.4 - 10.2 mg/dL) 8.7 Total Bilirubin (0.2 - 1.3 mg/dL) 3.7 H AST (14 - 36 U/L) 37 H ALT (9 - 52 U/L) 36 Alkaline Phosphatase (<127 U/L) 135 H Troponin I (< 0.11 ng/ml) 0.02 0.02 0.02 Cpi-A-Smre[place] Pept (<125 pg/mL) 1530 H Total Protein (6.3 - 8.2 g/dL) 7.6 Albumin (3.5 - 5.0 g/dL) 3.3 L Globulin (1.9 - 4.2 gm/dL) 4.3 H Albumin/Globulin Ratio (1.1 - 2.2 %) 0.8 L TSH (0.270 - 4.200 uIU/mL) 4.710 H Free T4 (0.78 - 2.44 ng/dL) 1.81 Coagulation PT (9.4 - 12.5 SEC) 21.4 H 24.6 H INR (0.90 - 1.19) 2.05 H 2.36 H Hematology CBC w Diff NO MAN DIFF REQ WBC (4.8 - 10.8 /CUMM) 7.1 RBC (4.20 - 5.40 /CUMM) 5.11 Hgb (12.0 - 16.0 G/DL) 13.2 Hct (37 - 47 %) 41.6 MCV (81.0 - 99.0 FL) 81.4 MCH (27.0 - 31.0 PG) 25.8 L RDW (11.5 - 14.5 %) 20.1 H Plt Count (130 - 400 /CUMM) 239 MPV (7.4 - 10.4 FL) 8.1 Gran % (42.2 - 75.2 %) 71.5 Lymphocytes % (20.5 - 51.1 %) 15.6 L Monocytes % (1.7 - 9.3 %) 11.9 H Eosinophils % (0 - 5 %) 0.6 Basophils % (0.0 - 2.0 %) 0.4 Absolute Granulocytes (1.4 - 6.5 /CUMM) 5.1 Absolute Lymphocytes (1.2 - 3.4 /CUMM) 1.1 L Absolute Monocytes (0.10 - 0.60 /CUMM) 0.9 H Absolute Eosinophils (0.0 - 0.7 /CUMM) 0 Absolute Basophils (0.0 - 0.2 /CUMM) 0 PUBS MCHC (33.0 - 37.0 G/DL) 31.6 L Diagnostic Data EKG Results (10/14/2016) atrial fibrillation with a rapid ventricular response, incomplete right bundle branch block, nonspecific T-wave abnormalities. CXR Results (10/13/2016) The recurring left-sided pleural effusion has definitely increased in volume since 09/03/2016. A thoracentesis was performed on 08/28/2016. The aerated lungs are clear. There is no visible right pleural effusion. Assessment/Plan Assessment/Plan Mrs. Ruth Ruiz is a 66-year-old female with a long-standing history of hypertension, hypothyroidism, rheumatic heart disease with severe range mitral stenosis, pulmonary hypertension, and tricuspid regurgitation, chronic atrial fibrillation for which he is on chronic anticoagulation, as well as, some medical compliance issues who has become increasingly symptomatic from her rheumatic valvular disease/atrial fibrillation over the past couple of months with planned mitral valve replacement and tricuspid valve repair, after her recent hospitalization here with decompensated biventricular heart failure, who was recommended ED evaluation/hospitalization for worsening outpatient symptoms/ signs, as described above. The plan is to optimize her cardiac status and either discharge her to home for readmission to the cardiothoracic surgical service (Stefan De Dios M.D.) or transfer her from to the surgical service at [facility] for the planned surgery. Recommendations: * Telemetry admission, follow-up troponins, follow-up electrocardiograms. * IV furosemide 40 mg twice daily for the next 24 hours and reassess the need for further IV diuresis in the morning. * Short-term catheter use for strict inputs/outputs. * Follow-up BUN/creatinine, potassium, and magnesium closely. * Hold warfarin for the short-term in anticipation of left thoracentesis. * Alert CT surgery (Stefan De Dios M.D.) to Mrs. Ruiz's admission. * Follow-up on pulmonary recommendations. * DVT prophylaxis. Further recommendations will follow, Thank you. Consult Acknowledgment - Thank you for your consult request.
[2016-10-14 16:03] VITALS: BP 116/68
--- NOTE | 2016-10-14 17:16 | PN- Thoracic Surgery ---
Surgical Brief Attending Note Brief Attending Note: Pt known to me. In the past it has taken upwards of a week to tune her up medically. I anticipate this going until; next week before whe is ready for surgery. Will follow
[2016-10-14 22:00] VITALS: BP 108/82
--- NOTE | 2016-10-15 07:37 | PN- Housestaff ---
JAI ROB,[facility] 10/15/16 0737: Subjective Follow-up For: CHF exacerbation Left-sided pleural effusion Tele-Events Since Last Visit: Ghislaine hdz, heart rate 76 at 90 Subjective: Since and examined this morning she was lying in bed in no acute distress, states that she feels the same as yesterday, satting in the 90s on 2 L of nasal cannula oxygen, blood pressure systolic borderline, remains on IV Lasix, aerating well. Review of Systems Constitutional: Denies: chills, fever. Cardiovascular: Denies: chest pain, palpitations. Respiratory: Denies: cough, short of breath, sputum production. Gastrointestinal: Denies: abdominal pain, constipation, diarrhea, nausea, vomiting. Genitourinary: Denies: dysuria, frequency. Objective Last 24 Hrs of Vital Signs/I&O Vital Signs Date Time Temp Pulse Resp B/P Pulse O2 O2 Flow FiO2 Ox Delivery Rate 10/15 1147 93 96/50 10/15 1147 93 96/50 10/15 0818 97.9 102 20 100/70 91 Nasal 2.0L Cannula 10/15 0800 95 Nasal 2.0L Cannula 10/15 0000 Nasal 2.0L Cannula 10/15 0000 98.0 18 94 Nasal Cannula 10/14 2200 105 108/82 10/14 2154 105 108/82 10/14 215 105 108/82 10/14 1603 98.2 88 18 116/68 93 Nasal 2.0L Cannula 10/14 1600 Nasal 2.0L Cannula 10/14 1415 104 110/64 Intake & Output 10/15 1600 10/15 0800 10/15 0000 Intake Total 50 100 Output Total 200 350 Balance -150 -250 Intake, Oral 50 100 Output, Urine 200 350 Patient 94.12 kg 95.821 kg Weight Physical Exam General Appearance: Alert, Oriented X3, Cooperative Cardiovascular: Regular Rate, Normal S1, Normal S2, No Murmurs Lungs: bilateral decreased breath sounds greater on the left side,scattered rhonchi Abdomen: Normal Bowel Sounds, Soft, distended Extremities: b/l lle edema 3plus Current Medications: Current Medications Sig/[place] Start time Last Medication Dose Route Stop Time Status Admin Acetaminophen 650 MG Q6P PRN 10/14 0545 AC PO Diltiazem HCl 60 MG BID 10/14 1000 AC 10/14 PO 2151 Furosemide 40 MG 7:30 AM, & 4:30 PM 10/14 0730 AC 10/15 IV 0647 Levothyroxine Sodium 0.137 MG DAILY AC 10/14 0700 AC 10/15 PO 0647 Melatonin 5 MG AT BEDTIME 10/14 2200 AC 10/14 PO 2144 Metoprolol Tartrate 100 MG BID 10/14 1000 AC 10/14 PO 2154 Nystatin 1 FRANCK BID 10/14 0033 10/15 [facility] 1147 Patient Medication 1 ED .STK-MED ONE 10/14 1356 [place] Teaching ED 10/14 1357 Last 24 Hrs of Lab/Kasi Results Last 24 Hrs of Labs/Mics: Laboratory Tests 10/15/16 0755: PT 23.0 H, INR 2.21 H, CBC w Diff NO MAN DIFF REQ, RBC 4.88, MCV 80.8 L, MCH 25.6 L, RDW 19.0 H, MPV 8.0, Gran % 72.5, Lymphocytes % 15.4 L, Monocytes % 11.0 H, Eosinophils % 0.6, Basophils % 0.5, Absolute Granulocytes 5.1, Absolute Lymphocytes 1.1 L, Absolute Monocytes 0.8 H, Absolute Eosinophils 0, Absolute Basophils 0, PUBS MCHC 31.7 L 10/15/16 0625: Anion Gap 7, Estimated GFR > 60, BUN/Creatinine Ratio 31.1 H Assessment/Plan Assessment: 66 y/o F with PMHx of atrial fibrillation on warfarin, HFpEF and mitral and aortic stenosis secondary to rheumatic fever who presents from CHF clinic with bilateral lower extremity edema and weeping. #Acute exacerbation of CHF: Orthopnea, dyspnea on exertion and bilateral lower extremity edema on initial presentation consistent with CHF exacerbation. History of HFpEF and mitral and aortic stenosis 2/2 rheumatic fever. An echocardiogram was performed (08/26/2016) revealed EF of greater than 60%, severe left atrial dilatation, moderate right atrial dilatation, mild right ventricular dilatation, rheumatic/age-related valvular changes, no pericardial effusion, left pleural effusion, mildly dilated proximal ascending aorta, and markedly dilated inferior vena cava. We'll continue to monitor on telemetry floor, cardiology and pulmonology has recomended to hold Coumadin for now and watch INR to trend down, INR as of today 2.21 , for possible thoracentesis if needed, patient started on IV Lasix 40 mg daily twice a day, with strict I's and O's and daily weights (urinary catheter temporarily for close I's and O's monitoring) Will follow-up a.m. creatinine and other lytes while on Lasix. #Recurrent left-sided pleural effusion: CXR with recurrent left-sided pleural effusion filling approximately one half the left hemithorax. S/p thoracentesis on 08/28/2016 with pleural fluid studies consistent with psuedoexudative etiology. As patient INR high, and currently patient has no pulmonary complaints secondary to pleural effusion we'll hold off of thoracentesis for now. Will trend INR, and depending on patient's clinical situation we'll decide on thoracentesis. #Bilateral lower extremity edema/weeping: Bilateral lower extremities with edema , redness and weeping, R >> L. Current presentation is not consistent with cellulitis as patient in the absence of warmth and tenderness on exam as well as fever and leukocytosis. Bilateral lower extremities cool to touch concerning for PAD. We are currently in a watch off antibiotics as patient does not have any fever or white count #Atrial fibrillation: INR therapeutic at 2.36 on admission. Controlled ventricular response. Takes diltiazem 60 mg PO BID and warfarin 6 mg PO QD. She is to be scheduled soon for mitral valve repair by Stefan De Dios MD once medically stable. #Hypothyroidism: * Continue prior to admission levothyroxine 137 mcg PO AC. Diet: CHF DVT PPx: Warfarin and ALPs CODE: FULL Problem List: 1. Bilateral lower extremity edema 2. Atrial fibrillation 3. Recurrent left pleural effusion Pain Ratin Pain Location: None Pain Goal: Remain pain free Pain Plan: Mild pain pathway Tomorrow's Labs & Rationales: INR for Coumadin dosing BEP 4 creatinine monitoring insetting of diuresis with ANN Denis MD 10/15/16 1450: Attending MD Review Statement Attending Statement Attending MD Statement: examined this patient, discuss w/resident/PA/WOUND/OSTOMY NURSE, agreed w/resident/PA/WOUND/OSTOMY NURSE, reviewed EMR data (avail), discussed with nursing, discussed with case mgmt, amended to note Attending Assessment/Plan: The patient was seen and discussed with house staff. Agree with the plan of care as outlined.
--- NOTE | 2016-10-15 07:53 | PN- Pulmonary ---
GIBRANROSY 10/15/16 0739: Subjective HPI/Critical Care Issues: Patient was visited and interviewed this morning. She is lying comfortably in her bed on nasal cannula oxygen 2 L. Not in obvious respiratory distress, however, uses short sentences for communication. Patient seems slightly short of breath while talking. Otherwise, she denies chest pain, palpitation, lightheadedness, dizziness. Vital signs are reviewed. Fluid balance -[address] Objective Current Medications: Current Medications Sig/[place] Start time Last Medication Dose Route Stop Time Status Admin Acetaminophen 650 MG Q6P PRN 10/14 0545 AC PO Diltiazem HCl 60 MG BID 10/14 1000 AC 10/14 PO 2151 Furosemide 40 MG 7:30 AM, & 4:30 PM 10/14 07 10/15 IV 0647 Levothyroxine Sodium 0.137 MG DAILY AC 10/14 0700 AC 10/15 PO 0647 Melatonin 5 MG AT BEDTIME 10/14 2200 AC 10/14 PO 2144 Metoprolol Tartrate 100 MG BID 10/14 1000 AC 10/14 PO 2154 Nystatin 1 FRANCK BID 10/14 0033 10/14 TOP 2143 Patient Medication 1 ED .STK-MED ONE 10/14 1356 DC Teaching ED 10/14 1357 Vital Signs & I&O Last 24 Hrs of Vitals and I&O: Vital Signs Date Time Temp Pulse Resp B/P Pulse O2 O2 Flow FiO2 Ox Delivery Rate 10/15 0000 Nasal 2.0L Cannula 10/15 0000 98.0 18 94 Nasal Cannula 10/14 2200 105 108/82 10/14 2154 105 108/82 10/14 215 105 108/82 10/14 1603 98.2 88 18 116/68 93 Nasal 2.0L Cannula 10/14 1600 Nasal 2.0L Cannula 10/14 1415 104 110/64 10/14 1033 104 100/76 10/14 0931 Nasal 2.0L Cannula 10/14 08 97.4 104 20 100/76 96 Nasal 2.0L Cannula 10/14 0800 96 Nasal 2.0L Cannula Intake & Output 10/15 08 02 0000 10/14 1600 Intake Total 50 100 640 Output Total 200 350 700 Balance -150 -250 -60 Intake, Oral 50 100 640 Number 0 Bowel Movements Output, Urine 200 350 700 Patient 208 lb 211 lb Weight Exam General Appearance: alert, awake, anxious, mild distress, obese Head: atraumatic Ears, Nose, Throat: normal pharynx, normal ENT inspection Neck: JVD Respiratory: decreased breath sounds, crackles, rhonchi Cardiovascular: edema, irregularly irregular, S1S2 Abdomen: normal bowel sounds, soft, non-tender Back: normal inspection Extremities: pedal edema, Anasarca +2 up to upper tigh Neurologic/Psychiatric: awake, alert, oriented x 3 Skin: ecchymosis, stasis dermatitis Results Last 24 Hrs of Lab Results: Laboratory Tests 10/15/16 0625: Sodium Pending, Potassium Pending, Chloride Pending, Carbon Dioxide Pending, Anion Gap Pending, BUN Pending, Creatinine Pending, BUN/Creatinine Ratio Pending Impression/Plan Impression/Plan Impression/Plan: consult for The 66-year-old woman was admitted for hypoxic respiratory failure in the setting of congestive heart failure decompensation and found to have recurrence of his left-sided pleural effusion. List of problems and plan 1. Acute hypoxic respiratory failure: Congestive heart failure versus/in addition to left-sided pleural effusion. * Continue diuresis with IV Lasix in order to maintain negative fluid balance- patient is clinically overloaded with 2+ anasarca and a slightly elevated JVD: agree with cardiology recommendation for diuresis with IV Lasix 40 mg twice a day * Daily weights; restrict ins and outs; low salt diets #Recurrent left-sided pleural effusion: CXR with recurrent left-sided pleural effusion filling approximately one half the left hemithorax. S/p thoracentesis on 08/28/2016 with pleural fluid studies consistent with exudative etiology. Current recurrence possibly related to decompensation of heart failure currently on IV diuresis. Continue close observation. * If patient for effusion did not resolve with IV diuresis, she might need therapeutic diagnostic ultrasound-guided thoracocentesis * Plan for now continue IV diuresis. Lasix 40 mg twice a day * Check daily BEP * Follow-up chest x-ray results this morning 2. Afib, not in rapid ventricular response. * Continue Cardizem and metoprolol. * Hold Coumadin DVT ppx therapeutic INR on coumadin. Full code. #Acute exacerbation of CHF: Orthopnea, dyspnea on exertion and bilateral lower extremity edema on initial presentation consistent with CHF exacerbation. Most recent ECHO in August 2016 with LVEF > 60% and mild concentric left ventricular hypertrophy. S/p 40 and 20 mg IV Lasix in the ED. * Admit to the telemetry floor. * Cardiology consult in the AM. Appreciate their recs. * Strict I/Os and daily weights. * Hold off on further Lasix this evening. ISMAEL PETERSON MD 10/15/16 0929: Impression/Plan Impression/Plan Recommendations: Ismael Chávez M.D. have examined this patient, reviewed available EMR data, personally reviewed images, discussed with resident/PA/RESEARCH EPIDEMIOLOGIST, discussed management plan with housestaff and nursing staff, discussed managment plan all of healthcare providers, discussed management plan with patient and/or family, agreed with resident/PA/RESEARCH EPIDEMIOLOGIST. The past history and parts of the chart have been autopopulated. Impression 66 year old woman with decompensated acute exacerbation of heart failure. Hx of rheumatic heart disease, severe mitral stenosis. Plan -trend INR, when reaches 1.5 or below would recommend diagnostic and therapeutic drainage of pleural fluid if still remains after diuresis -repeat CXR today -keep off coumadin -cardiology input appreciated, f/u recommendations -monitor INR daily
[2016-10-15 08:17] LABS: ABSOLUTE BASOPHIL COUNT 0 /CUMM (0.0-0.2); ABSOLUTE EOSINOPHIL COUNT 0 /CUMM (0.0-0.7); ABSOLUTE GRANULOCYTE CT 5.1 /CUMM (1.4-6.5); ABSOLUTE LYMPH COUNT 1.1 /CUMM (1.2-3.4); ABSOLUTE MONOCYTE COUNT 0.8 /CUMM (0.10-0.60); BASOPHIL % 0.5 % (0.0-2.0); EOSINOPHIL % 0.6 % (0-5); GRANULOCYTE % 72.5 % (42.2-75.2); HEMATOCRIT 39.4 % (37-47); MEAN CORPUSCULAR HGB 25.6 PG (27.0-31.0); MEAN CORPUSCULAR HGB CONC 31.7 G/DL (33.0-37.0); MEAN CORPUSCULAR VOLUME 80.8 FL (81.0-99.0); PLATELET COUNT 231 /CUMM (130-400); RED BLOOD CELL CT 4.88 /CUMM (4.20-5.40)
[2016-10-15 08:18] VITALS: BP 100/70
--- NOTE | 2016-10-15 12:29 | RADIOLOGY REPORT ---
EXAMINATION: XR PORTABLE CHEST CLINICAL INFORMATION: Shortness of breath. Left pleural effusion. COMPARISON: Chest x-ray 10/13/2016 TECHNIQUE: Portable AP view of the chest was obtained. FINDINGS: Persistent moderate left-sided pleural effusion which appears slightly decreased in size. The right hemithorax is well aerated. Evaluation of the heart is limited secondary to abutting pleural effusion, however, appears enlarged. IMPRESSION: Moderate left-sided pleural effusion, slightly decreased in size since 10/13/2016.
--- NOTE | 2016-10-15 14:22 | Patient Discharge Instructions ---
Discharge Instructions General Discharge Information You were seen/treated for: CHF exacerbation Left-sided pleural effusion You had these procedures: Successful left ultrasound-guided therapeutic and diagnostic thoracentesis. 1060 mL of clear dark yellow fluid was aspirated Special Instructions: [facility] physical science aide, textile conservator [facility] one week. Diet Recommended Diet: Heart Healthy, low salt diet Activity Activity Self Limited: Yes Acute Coronary Syndrome Inclusion Criteria At DC or during hospital stay patient has or had the following: ACS DIAGNOSIS No Discharge Core Measures Meds if any: Prescribed or Continued at Discharge Meds if any: NOT Prescribed or Continued at Discharge Congestive Heart Failure Inclusion Criteria At DC or during hospital stay patient has or had the following: CHF DIAGNOSIS Yes Discharge Core Measures Meds if any: Prescribed or Continued at Discharge Meds if any: NOT Prescribed or Continued at Discharge Cerebrovascular accident Inclusion Criteria At DC or during hospital stay patient has or had the following: CVA/TIA Diagnosis No Discharge Core Measures Meds if any: Prescribed or Continued at Discharge Meds if any: NOT Prescribed or Continued at Discharge Venous thromboembolism Inclusion Criteria VTE Diagnosis No VTE Type NONE VTE Confirmed by (Test) NONE Discharge Core Measures - Per Current guidelines, there needs to be overlap - treatment for the first 5 days of Warfarin therapy. - If discharged on Warfarin prior to 5 days of - overlap therapy, the patient will need to be - assessed for post discharge needs including - *Post discharge parental anticoagulation - *Warfarin and/or parental anticoagulation education - *Follow up date to check INR post discharge At least 5 days overlap therapy as Inpatient No Meds if any: Prescribed or Continued at Discharge Note: Overlap Therapy is Warfarin and Anticoagulant Meds if any: NOT Prescribed or Continued at Discharge
[2016-10-15 16:00] VITALS: BP 100/62
--- NOTE | 2016-10-15 17:54 | PN- Cardiology ---
Subjective Subjective: Feels a little better today. Breathing has improved and she has noted a decrease in her abdominal girth and lower extremity edema. Objective Vital Signs and I&Os Vital Signs Date Time Temp Pulse Resp B/P Pulse O2 O2 Flow FiO2 Ox Delivery Rate 10/15 1600 98.1 103 20 100/62 95 Nasal 2.0L Cannula 10/15 1147 93 96/50 10/15 1147 93 96/50 10/15 0818 97.9 102 20 100/70 91 Nasal 2.0L Cannula 10/15 08 95 Nasal 2.0L Cannula 10/15 0000 Nasal 2.0L Cannula 10/15 0000 98.0 18 94 Nasal Cannula 10/14 2199 105 108/82 10/14 215 105 108/82 10/14 2150 105 Intake & Output 10/15 1600 10/15 0810/15 0000 10/14 1600 10/14 0810/14 0000 Intake Total 480 50 100 640 150 Output Total 350 200 350 700 800 300 Balance 130 -150 -250 -60 -650 -300 Intake, Oral 480 50 100 640 150 Number 0 0 Bowel Movements Output, Urine 350 200 350 700 800 300 Patient 208 lb 211 lb 211 lb Weight Physical Exam: Well-developed, overweight female in no acute distress. Vital signs: See above. HEENT: Normocephalic, atraumatic, EOMI, moist mucous membranes. Neck: No JVD, no bruits. Lungs: Decreased breath sounds mcc up on the left and at the right base. Heart: S1, S2 (irregularly, irregular) with grade 1-2/6 systolic murmur best heard at the base, grade 1/6 diastolic murmur heard near the apex. No gallop or rub appreciated. PMI fifth ICS at [facility]. Extremities: 2-3+ bilateral lower extremity edema with erythema. Current Medications: Current Medications Sig/[place] Start time Last Medication Dose Route Stop Time Status Admin Acetaminophen 650 MG Q6P PRN 10/14 0545 AC PO Diltiazem HCl 60 MG BID 10/14 1000 AC 10/14 PO 2151 Furosemide 40 MG 7:30 AM, & 4:30 PM 10/14 0730 AC 10/15 IV 1730 Levothyroxine Sodium 0.137 MG DAILY AC 10/14 0700 AC 10/15 PO 0647 Melatonin 5 MG AT BEDTIME 10/14 2199 AC 10/14 PO 2144 Metoprolol Tartrate 100 MG BID 10/14 1000 10/14 PO 2154 Nystatin 1 FRANCK BID 10/14 0033 10/15 [facility] 1147 Results Last 48 Hrs of Labs/Mics: Laboratory Tests 10/15/16 0755: PT 23.0 H, INR 2.21 H, CBC w Diff NO MAN DIFF REQ, RBC 4.88, MCV 80.8 L, MCH 25.6 L, RDW 19.0 H, MPV 8.0, Gran % 72.5, Lymphocytes % 15.4 L, Monocytes % 11.0 H, Eosinophils % 0.6, Basophils % 0.5, Absolute Granulocytes 5.1, Absolute Lymphocytes 1.1 L, Absolute Monocytes 0.8 H, Absolute Eosinophils 0, Absolute Basophils 0, PUBS MCHC 31.7 L 10/15/16 0625: Anion Gap 7, Estimated GFR > 60, BUN/Creatinine Ratio 31.1 H 10/14/16 0648: Troponin I 0.02 10/14/16 0648: TSH 4.710 H, Free T4 1.81, PT 21.4 H, INR 2.05 H 10/14/16 0200: Troponin I 0.02 10/13/16 1851: Anion Gap 10, Estimated GFR > 60, BUN/Creatinine Ratio 35.6 H, Glucose 77, Calcium 8.7, Total Bilirubin 3.7 H, AST 37 H, ALT 36, Alkaline Phosphatase 135 H, Troponin I 0.02, Bui-B-Rtwbdvsgupe Pept 1530 H, Total Protein 7.6, Albumin 3.3 L, Globulin 4.3 H, Albumin/Globulin Ratio 0.8 L, PT 24.6 H, INR 2.36 H, CBC w Diff NO MAN DIFF REQ, RBC 5.11, MCV 81.4, MCH 25.8 L, RDW 20.1 H, MPV 8.1, Gran % 71.5, Lymphocytes % 15.6 L, Monocytes % 11.9 H, Eosinophils % 0.6, Basophils % 0.4, Absolute Granulocytes 5.1, Absolute Lymphocytes 1.1 L, Absolute Monocytes 0.9 H, Absolute Eosinophils 0, Absolute Basophils 0, PUBS MCHC 31.6 L Microbiology 10/13 2240 URINE ROUT: Urine Culture - COMP Recent Imaging Studies: CXR (10/15/2016) Moderate left-sided pleural effusion, slightly decreased in size since 10/13/2016. Assessment/Plan Assessment/Plan Mrs. Ruiz is a 66-year-old female with a long-standing history of hypertension, hypothyroidism, rheumatic heart disease with severe range mitral stenosis, pulmonary hypertension, and tricuspid regurgitation, chronic atrial fibrillation for which he is on chronic anticoagulation, as well as, some medical compliance issues who has become increasingly symptomatic from her rheumatic valvular disease/atrial fibrillation over the past couple of months with planned mitral valve replacement and tricuspid valve repair, after optimization of her clinical status. Fortunately, she is feeling somewhat improved today after diuresis with a negative balance (-1260 ml) since admission. Her left pleural effusion has decreased slightly, her BUN has slightly improved and her creatinine is unchanged. Recommendations: * Continue on telemetry and present regimen. * IV furosemide 40 mg twice daily for the next 24 hours and reassess the need for further IV diuresis in the morning. * Follow-up BUN/creatinine, potassium, and magnesium closely. * Hold warfarin for the short-term in anticipation of left thoracentesis. * Follow-up on pulmonary recommendations. * Note abnormally low albumin and abnormally high globulin. Consider further evaluation with SPEP, etc. * DVT prophylaxis. Continue telemetry? Yes
[2016-10-15 23:00] VITALS: BP 90/68
--- NOTE | 2016-10-16 07:30 | PN- Housestaff ---
JAI ROB,[facility] 10/16/16 0729: Subjective Follow-up For: CHF exacerbation Left-sided pleural effusion Tele-Events Since Last Visit: Rebeca. wilder, heart rate 110-128, 140 this a.m. Subjective: Patient seen and examined this morning. She was lying comfortably in chair in no acute distress. She was reported to be tachycardic and hypotensive overnight , Cardizem and metoprolol dose was held yesterday since patient was hypotensive. Afebrile, no other complaints. She is on 2 L of nasal cannula oxygen saturation mid 90s. Review of Systems Constitutional: Denies: chills, fever. Cardiovascular: Denies: chest pain, palpitations. Respiratory: Denies: cough, short of breath, sputum production. Gastrointestinal: Denies: abdominal pain, constipation, diarrhea, nausea, vomiting. Objective Last 24 Hrs of Vital Signs/I&O Vital Signs Date Time Temp Pulse Resp B/P Pulse O2 O2 Flow FiO2 Ox Delivery Rate 10/16 0822 98.3 134 20 118/62 90 Nasal 2.0L Cannula 10/16 0706 140 110/54 10/16 0000 93 Nasal 2.0L Cannula 10/15 2300 97.6 102 18 90/68 93 Nasal 2.0L Cannula 10/15 2216 103 90/68 10/15 2215 103 90/68 10/15 1600 98.1 103 20 100/62 95 Nasal 2.0L Cannula 10/15 1147 93 96/50 / 1147 93 96/50 Intake & Output 10/16 1600 10/16 0800 10/16 0000 Intake Total 120 450 Output Total 200 900 Balance -80 -450 Intake, Oral 120 450 Output, Urine 200 900 Patient 95.254 kg Weight Physical Exam General Appearance: Alert, Oriented X3, Cooperative, No Acute Distress Cardiovascular: Regular Rate, Normal S1, Normal S2 Lungs: decreased breath sounds left side, patchy wheezing bilaterally along with rhonchi Abdomen: Normal Bowel Sounds, Soft, No Tenderness Extremities: No Clubbing, No Cyanosis, bilateral lower extremity edema 3+ Current Medications: Current Medications Sig/[place] Start time Last Medication Dose Route Stop Time Status Admin Acetaminophen 650 MG Q6P PRN 10/14 0545 AC PO Diltiazem HCl 60 MG BID 10/14 1000 AC 10/16 PO 0706 Furosemide 40 MG 7:30 AM, & 4:30 PM 10/14 0730 AC 10/16 IV 0645 Levothyroxine Sodium 0.137 MG DAILY AC 10/14 0700 AC 10/16 PO 0645 Melatonin 5 MG AT BEDTIME 10/14 2200 AC 10/15 PO 2214 Metoprolol Tartrate 100 MG BID 10/14 1000 AC 10/14 PO 2154 Nystatin 1 FRANCK BID 10/14 0033 AC 10/15 TOP 2216 Phytonadione 5 MG ONCE ONE 10/16 0945 UNVr SC 10/16 0946 Last 24 Hrs of Lab/Kasi Results Last 24 Hrs of Labs/Mics: Laboratory Tests 10/16/16 0655: Anion Gap 10, Estimated GFR 56 L, BUN/Creatinine Ratio 25.0, Magnesium 1.8, PT 20.5 H, INR 1.97 H Assessment/Plan Assessment: 66 y/o F with PMHx of atrial fibrillation on warfarin, HFpEF and mitral and aortic stenosis secondary to rheumatic fever who presents from CHF clinic with bilateral lower extremity edema and weeping. #Acute exacerbation of CHF: Orthopnea, dyspnea on exertion and bilateral lower extremity edema on initial presentation consistent with CHF exacerbation. History of HFpEF and mitral and aortic stenosis 2/2 rheumatic fever. An echocardiogram was performed (08/26/2016) revealed EF of greater than 60%, severe left atrial dilatation, moderate right atrial dilatation, mild right ventricular dilatation, rheumatic/age-related valvular changes, no pericardial effusion, left pleural effusion, mildly dilated proximal ascending aorta, and markedly dilated inferior vena cava. We'll continue to monitor on telemetry floor, cardiology and pulmonology has recomended to hold Coumadin for now and watch INR to trend down, INR as of today 2.21 , for possible thoracentesis if needed, patient started on IV Lasix 40 mg daily twice a day, with strict I's and O's and daily weights (urinary catheter temporarily for close I's and O's monitoring) Will follow-up a.m. creatinine and other lytes while on Lasix. #Recurrent left-sided pleural effusion: CXR with recurrent left-sided pleural effusion filling approximately one half the left hemithorax. S/p thoracentesis on 08/28/2016 with pleural fluid studies consistent with psuedoexudative etiology. As patient INR high, and currently patient has no pulmonary complaints secondary to pleural effusion we'll hold off of thoracentesis for now. Will trend INR, and depending on patient's clinical situation we'll decide on thoracentesis. #Bilateral lower extremity edema/weeping: Bilateral lower extremities with edema , redness and weeping, R >> L. Current presentation is not consistent with cellulitis as patient in the absence of warmth and tenderness on exam as well as fever and leukocytosis. Bilateral lower extremities cool to touch concerning for PAD. We are currently in a watch off antibiotics as patient does not have any fever or white count #Atrial fibrillation: INR therapeutic at 2.36 on admission. Controlled ventricular response. Takes diltiazem 60 mg PO BID and warfarin 6 mg PO QD. She is to be scheduled soon for mitral valve repair by Stefan De Dios MD once medically stable. #Hypothyroidism: * Continue prior to admission levothyroxine 137 mcg PO AC. Diet: CHF DVT PPx: Warfarin and ALPs CODE: FULL Problem List: 1. Recurrent left pleural effusion 2. Bilateral lower extremity edema 3. Tricuspid regurgitation Pain Ratin Pain Location: None Pain Goal: Remain pain free Pain Plan: Mild pain pathway Tomorrow's Labs & Rationales: INR BeP 4 creatinine monitoring while on Lasix CBC for H&H monitoring ANN SMART MD 10/16/16 2134: Attending MD Review Statement Attending Statement Attending MD Statement: examined this patient, discuss w/resident/PA/GENERAL LABORER, agreed w/resident/PA/GENERAL LABORER, reviewed EMR data (avail), discussed with nursing, discussed with case mgmt, amended to note Attending Assessment/Plan: The patient was seen and discussed with house staff. HR lower on Cardizem. Will plan for thoracentesis tomorrow in IR as discussed. ?Mitral valve repair next week.
--- NOTE | 2016-10-16 08:02 | RADIOLOGY REPORT ---
EXAMINATION: XR PORTABLE CHEST CLINICAL INFORMATION: Left pleural effusion. COMPARISON: Chest radiograph dated 10/15/2016. TECHNIQUE: Portable AP view of the chest was obtained. FINDINGS: The cardiac silhouette appears grossly stable in size when differences in technique are accounted for. The left pleural effusion appears slightly larger compared with examination dated 10/15/2016. The right lung remains free of consolidation. There is no right pleural effusion. There is no pneumothorax. IMPRESSION: Left pleural effusion appears slightly larger compared with examination dated 10/15/2016.
[2016-10-16 08:16] LABS: PT 20.5 SEC (9.4-12.5)
[2016-10-16 08:22] VITALS: BP 118/62
--- NOTE | 2016-10-16 09:31 | PN- Pulmonary ---
Subjective HPI/Critical Care Issues: pt seen and examined pleural effusion persists INR still elevated some exertional and conversational dyspnea no n/v/dc Objective Current Medications: Current Medications Sig/[place] Start time Last Medication Dose Route Stop Time Status Admin Acetaminophen 650 MG Q6P PRN 10/14 0545 AC PO Diltiazem HCl 60 MG BID 10/14 1000 AC 10/16 PO 0706 Furosemide 40 MG 7:30 AM, & 4:30 PM 10/14 0730 AC 10/16 IV 0645 Levothyroxine Sodium 0.137 MG DAILY AC 10/14 0700 AC 10/16 PO 0645 Melatonin 5 MG AT BEDTIME 10/14 2200 AC 10/15 PO 2214 Metoprolol Tartrate 100 MG BID 10/14 1000 AC 10/14 PO 2154 Nystatin 1 FRANCK BID 10/14 0033 AC 10/15 TOP 2216 Vital Signs & I&O Last 24 Hrs of Vitals and I&O: Vital Signs Date Time Temp Pulse Resp B/P Pulse O2 O2 Flow FiO2 Ox Delivery Rate 10/16 0822 98.3 134 20 118/62 90 Nasal 2.0L Cannula 10/16 0706 140 110/54 10/16 0000 93 Nasal 2.0L Cannula 10/15 2300 97.6 102 18 90/68 93 Nasal 2.0L Cannula 10/15 2216 103 90/68 10/15 2215 103 90/68 10/15 1600 98.1 103 20 100/62 95 Nasal 2.0L Cannula 10/15 1147 93 96/50 02/ 1147 93 96/50 Intake & Output 10/16 1600 10/16 0800 10/16 0000 Intake Total 120 450 Output Total 200 900 Balance -80 -450 Intake, Oral 120 450 Output, Urine 200 900 Patient 210 lb Weight Exam Other Physical Findings: gen awake and alert heent ncat cvs s1, s2, +murmur lungs diminished bs on left and right base, dullness to percussion on left mid chest abd soft bs+ ext weeping serous fluid, edema Results Last 24 Hrs of Lab Results: Laboratory Tests 10/16/16 0655: Anion Gap 10, Estimated GFR 56 L, BUN/Creatinine Ratio 25.0, Magnesium 1.8, PT 20.5 H, INR 1.97 H Impression/Plan Impression/Plan Impression/Plan: Impression 66 year old woman with decompensated acute exacerbation of heart failure. Hx of rheumatic heart disease, severe mitral stenosis. Plan -trend INR, recommend diagnostic and therapeutic drainage when INR acceptable for thoracentesis -keep off coumadin -cardiology input appreciated, f/u recommendations -monitor INR daily -f/u cardiothoracic recommendations regarding possible transfer when optimized for valvular surgery
--- NOTE | 2016-10-16 14:05 | PN- Cardiology ---
Subjective Subjective: Feels about the same. On telemetry she had some rapid ventricular response rates to her atrial fibrillation earlier. Objective Vital Signs and I&Os Vital Signs Date Time Temp Pulse Resp B/P Pulse O2 O2 Flow FiO2 Ox Delivery Rate 10/16 0942 132 108/78 10/16 0822 98.3 134 20 118/62 90 Nasal 2.0L Cannula 10/16 08 93 Nasal 2.0L Cannula 10/16 0706 140 110/54 10/16 0000 93 Nasal 2.0L Cannula 10/15 2300 97.6 102 18 90/68 93 Nasal 2.0L Cannula 10/15 2216 103 90/68 10/15 2215 103 90/68 10/15 1600 98.1 103 20 100/62 95 Nasal 2.0L Cannula Intake & Output 10/16 1600 10/16 0810/16 0000 10/15 1600 10/15 0800 10/15 0000 Intake Total 120 450 480 50 100 Output Total 200 900 350 200 350 Balance -80 -450 130 -150 -250 Intake, Oral 120 450 480 50 100 Output, Urine 200 900 350 200 350 Patient 210 lb 208 lb 211 lb Weight Physical Exam: Well-developed, overweight female in no acute distress. Vital signs: See above. HEENT: Normocephalic, atraumatic, EOMI, moist mucous membranes. Neck: No JVD, no bruits. Lungs: Decreased breath sounds alf up on the left and at the right base. Heart: S1, S2 (irregularly, irregular) with grade 1-2/6 systolic murmur best heard at the base, grade 1/6 diastolic murmur heard near the apex. No gallop or rub appreciated. PMI fifth ICS at [facility]. Abdomen: Distended, nontender, positive bowel sounds. Extremities: 2-3+ bilateral lower extremity edema with erythema. Current Medications: Current Medications Sig/[place] Start time Last Medication Dose Route Stop Time Status Admin Acetaminophen 650 MG Q6P PRN 10/14 0545 AC PO Diltiazem HCl 60 MG BID 10/14 1000 AC 10/16 PO 0706 Furosemide 40 MG 7:30 AM, & 4:30 PM 10/14 0730 AC 10/16 IV 0645 Levothyroxine Sodium 0.137 MG DAILY AC 10/14 07 AC 10/16 PO 0645 Melatonin 5 MG AT BEDTIME 10/14 2199 AC 10/15 PO 2214 Metoprolol Tartrate 100 MG BID 10/14 1000 AC 10/16 PO 0942 Nystatin 1 FRANCK BID 10/14 0033 10/16 [facility] 0942 Patient Medication 1 ED .STK-MED ONE 10/16 1328 DC Teaching ED 10/16 1329 Phytonadione 5 MG ONCE ONE 10/16 0945 DC 10/16 IA 10/16 0946 1037 Results Last 48 Hrs of Labs/Mics: Laboratory Tests 10/16/16 0655: Anion Gap 10, Estimated GFR 56 L, BUN/Creatinine Ratio 25.0, Magnesium 1.8, PT 20.5 H, INR 1.97 H 10/15/16 0755: PT 23.0 H, INR 2.21 H, CBC w Diff NO MAN DIFF REQ, RBC 4.88, MCV 80.8 L, MCH 25.6 L, RDW 19.0 H, MPV 8.0, Gran % 72.5, Lymphocytes % 15.4 L, Monocytes % 11.0 H, Eosinophils % 0.6, Basophils % 0.5, Absolute Granulocytes 5.1, Absolute Lymphocytes 1.1 L, Absolute Monocytes 0.8 H, Absolute Eosinophils 0, Absolute Basophils 0, PUBS MCHC 31.7 L 10/15/16 0744: Sodium Cancelled, Potassium Cancelled, Chloride Cancelled, Carbon Dioxide Cancelled, Anion Gap Cancelled, BUN Cancelled, Creatinine Cancelled, BUN/ Creatinine Ratio Cancelled 10/15/16 0625: Anion Gap 7, Estimated GFR > 60, BUN/Creatinine Ratio 31.1 H Recent Imaging Studies: CXR (10/16/2016) The cardiac silhouette appears grossly stable in size when differences in technique are accounted for. The left pleural effusion appears slightly larger compared with examination dated 10/15/2016. The right lung remains free of consolidation. There is no right pleural effusion. There is no pneumothorax. Assessment/Plan Assessment/Plan Mrs. Ruiz is a 66-year-old female with a long-standing history of hypertension, hypothyroidism, rheumatic heart disease with severe range mitral stenosis, pulmonary hypertension, and tricuspid regurgitation, chronic atrial fibrillation for which he is on chronic anticoagulation, as well as, some medical compliance issues who has become increasingly symptomatic from her rheumatic valvular disease/atrial fibrillation over the past couple of months with planned mitral valve replacement and tricuspid valve repair, after optimization of her clinical status. She is feeling unchanged today, despite diuresis with a negative balance (-1730 ml) since admission. Her left pleural effusion has increased slightly, her BUN has slightly improved and her creatinine has increased slightly. She did not receive this a.m.'s diuretic dosage. Recommendations: * Continue on telemetry and present regimen. * Reassess the need for further IV diuresis in the morning. * Follow-up BUN/creatinine, potassium, and magnesium closely. * Warfarin remains on hold for the short-term and she received vitamin K in anticipation of left thoracentesis. Would bridge with IV heparin and discontinue this several hours prior to the planned left thoracentesis, given her mitral stenosis, chronic atrial fibrillation, etc. * Follow-up on pulmonary recommendations. * Note abnormally low albumin and abnormally high globulin. Consider further evaluation with SPEP, etc. * DVT prophylaxis. Continue telemetry? Yes
[2016-10-16 15:30] VITALS: BP 100/68
[2016-10-16 22:52] LABS: PTT 46 SEC (25-37)
[2016-10-16 23:38] VITALS: BP 98/60
[2016-10-17 05:41] LABS: PT 19.1 SEC (9.4-12.5); PTT 34 SEC (25-37)
--- NOTE | 2016-10-17 07:15 | PN- Housestaff ---
JAI ROB,[facility] 10/17/16 0715: Subjective Follow-up For: CHF exacerbation Left-sided pleural effusion Tele-Events Since Last Visit: A. fib, heart rate 73-98 and no overnight events Subjective: Patient seen and examined this morning. She was lying comfortably in bed in no acute distress, remains on 2 L of nasal canal oxygen satting in the 90s. She is to go for IR guided thoracentesis today for left pleural effusion. Remains afebrile, blood pressure to with the lower side. No other complaints. Review of Systems Constitutional: Denies: chills, fever. Cardiovascular: Denies: chest pain, palpitations. Respiratory: Denies: cough, short of breath, sputum production. Gastrointestinal: Denies: abdominal pain, constipation, diarrhea, nausea, vomiting. Genitourinary: Denies: dysuria, frequency. Objective Last 24 Hrs of Vital Signs/I&O Vital Signs Date Time Temp Pulse Resp B/P Pulse O2 O2 Flow FiO2 Ox Delivery Rate 10/17 0818 97.6 92 17 107/57 95 10/17 0000 Nasal 2.0L Cannula 10/16 2338 97.5 94 18 98/60 96 Nasal 2.0L Cannula 10/16 2124 109 102/64 10/16 2124 109 102/64 10/16 1600 Nasal 2.0L Cannula 10/16 1530 97.8 95 20 100/68 92 Nasal 2.0L Cannula 10/16 0942 132 108/78 Intake & Output 10/17 1600 10/17 0800 10/17 0000 Intake Total 225 340 Output Total 225 450 Balance 0 -110 Intake, IV 200 100 Intake, Oral 25 240 Number 1 Bowel Movements Output, Urine 225 450 Patient 93.667 kg Weight Physical Exam General Appearance: Alert, Oriented X3, Cooperative, No Acute Distress Cardiovascular: Normal S1, Normal S2, irregularly irregular Lungs: left sided decreased breath sounds Abdomen: Normal Bowel Sounds, Soft, No Tenderness Extremities: No Clubbing, No Cyanosis, b/l LLE edema 2plus Current Medications: Current Medications Sig/[place] Start time Last Medication Dose Route Stop Time Status Admin Acetaminophen 650 MG Q6P PRN 10/14 0545 AC PO Diltiazem HCl 60 MG BID 10/14 1000 AC 10/16 PO 2124 Furosemide 40 MG 7:30 AM, & 4:30 PM 10/14 0730 AC 10/16 IV 1702 Heparin Sodium 25,000 UNIT Q24H 10/16 1430 AC 10/16 (Porcine) IV 1602 Sodium Chloride 500 ML Levothyroxine Sodium 0.137 MG DAILY AC 10/14 0700 AC 10/16 PO 0645 Melatonin 5 MG AT BEDTIME 10/14 2200 AC 10/15 PO 2214 Metoprolol Tartrate 100 MG BID 10/14 1000 AC 10/16 PO 2124 Nystatin 1 FRANCK BID 10/14 0033 10/16 [facility] 2126 Patient Medication 1 ED .STK-MED ONE 10/16 1328 DC Teaching ED 10/16 1329 Phytonadione 5 MG ONCE ONE 10/16 0945 DC 10/16 CA 10/16 0946 1037 Last 24 Hrs of Lab/Kasi Results Last 24 Hrs of Labs/Mics: Laboratory Tests 10/17/16 0510: Anion Gap 7, Estimated GFR > 60, BUN/Creatinine Ratio 27.8 H, PT 19.1 H, INR 1.83 H, APTT 34 10/17/16 0500: APTT Cancelled 10/16/16 2220: APTT 46 H Assessment/Plan Assessment: 66 y/o F with PMHx of atrial fibrillation on warfarin, HFpEF and mitral and aortic stenosis secondary to rheumatic fever who presents from CHF clinic with bilateral lower extremity edema and weeping. #Acute exacerbation of CHF: Orthopnea, dyspnea on exertion and bilateral lower extremity edema on initial presentation consistent with CHF exacerbation. History of HFpEF and mitral and aortic stenosis 2/2 rheumatic fever. An echocardiogram was performed (08/26/2016) revealed EF of greater than 60%, severe left atrial dilatation, moderate right atrial dilatation, mild right ventricular dilatation, rheumatic/age-related valvular changes, no pericardial effusion, left pleural effusion, mildly dilated proximal ascending aorta, and markedly dilated inferior vena cava. We'll continue to monitor on telemetry floor, on IV Lasix 40 mg daily twice a day, with strict I's and O's and daily weights (urinary catheter temporarily for close I's and O's monitoring)creatnine stable, thoracentesis today. #Recurrent left-sided pleural effusion: CXR with recurrent left-sided pleural effusion filling approximately one half the left hemithorax. S/p thoracentesis on 08/28/2016 with pleural fluid studies consistent with psuedoexudative etiology. patientto go for thoracentesis today. #Bilateral lower extremity edema/weeping: Bilateral lower extremities with edema , redness and weeping, R >> L. Current presentation is not consistent with cellulitis as patient in the absence of warmth and tenderness on exam as well as fever and leukocytosis. #Atrial fibrillation: INR therapeutic at 2.36 on admission. Controlled ventricular response. Takes diltiazem 60 mg PO BID and warfarin 6 mg PO QD. She is to be scheduled soon for mitral valve repair by Stefan De Dios MD once medically stable. #Hypothyroidism: * Continue prior to admission levothyroxine 137 mcg PO AC. Diet: CHF DVT PPx: Warfarin and ALPs CODE: FULL Problem List: 1. Recurrent left pleural effusion 2. Atrial fibrillation 3. Bilateral lower extremity edema Pain Ratin Pain Location: none Pain Goal: Remain pain free Pain Plan: mild pain pathway Tomorrow's Labs & Rationales: INR for coumadin dosing BEP for creatnine monitoring CBC for h&H monitoring ANN SMART MD 10/17/16 5134: Attending MD Review Statement Attending Statement Attending MD Statement: examined this patient, discuss w/resident/PA/APPOINTMENT SCHEDULER, agreed w/resident/PA/APPOINTMENT SCHEDULER, reviewed EMR data (avail), discussed with nursing, discussed with case mgmt, amended to note Attending Assessment/Plan: The patient was seen and discussed with house staff. S/P thoracentesis today as noted above. Some improvement in breathing post thoracentesis. Will maintain on heparin at present. For valve repair surgery at [facility] in [place] next week. Follow HR.
[2016-10-17 08:18] VITALS: BP 107/57
--- NOTE | 2016-10-17 10:53 | PN- Pulmonary ---
Subjective HPI/Critical Care Issues: pt seen and examined planned for thoracentesis some dyspnea with exertional swelling persists no fevers INR 1.83 Objective Current Medications: Current Medications Sig/[place] Start time Last Medication Dose Route Stop Time Status Admin Acetaminophen 650 MG Q6P PRN 10/14 0545 AC PO Diltiazem HCl 60 MG BID 10/14 1000 AC 10/16 PO 2124 Furosemide 40 MG 7:30 AM, & 4:30 PM 10/14 0730 AC 10/16 IV 1702 Heparin Sodium 25,000 UNIT Q24H 10/16 1430 AC 10/16 (Porcine) IV 1602 Sodium Chloride 500 ML Levothyroxine Sodium 0.137 MG DAILY AC 10/14 0700 AC 10/16 PO 0645 Melatonin 5 MG AT BEDTIME 10/14 2200 AC 10/15 PO 2214 Metoprolol Tartrate 100 MG BID 10/14 1000 AC 10/16 PO 2124 Nystatin 1 FRANCK BID 10/14 0033 AC 10/16 TOP 2126 Patient Medication 1 ED .STK-MED ONE 10/16 1328 VT Teaching ED 10/16 1329 Vital Signs & I&O Last 24 Hrs of Vitals and I&O: Vital Signs Date Time Temp Pulse Resp B/P Pulse O2 O2 Flow FiO2 Ox Delivery Rate 10/17 08 97.6 92 17 107/57 95 10/17 0000 Nasal 2.0L Cannula 10/16 2338 97.5 94 18 98/60 96 Nasal 2.0L Cannula 10/16 2123 109 102/64 10/16 2123 109 102/64 10/16 1600 Nasal 2.0L Cannula 10/16 1530 97.8 95 20 100/68 92 Nasal 2.0L Cannula Intake & Output 10/17 1600 10/17 0800 10/17 0000 Intake Total 225 340 Output Total 225 450 Balance 0 -110 Intake, IV 200 100 Intake, Oral 25 240 Number 1 Bowel Movements Output, Urine 225 450 Patient 207 lb Weight Exam Other Physical Findings: gen awake and alert heent ncat cvs s1, s2, +murmur lungs diminished bs on left and right base, dullness to percussion on left mid chest abd soft bs+ ext weeping serous fluid, edema Results Last 24 Hrs of Lab Results: Laboratory Tests 10/17/16 0950: Pleural pH 7.41 10/17/16 0950: Fluid WBC Pending, Fld Total RBCs Counted Pending 10/17/16 0950: Fluid Glucose Cancelled, Fluid Total Protein Cancelled 10/17/16 0950: Phlebotomy Draw Site L THORACENTESIS, Fluid Glucose Pending, Fluid Total Protein Pending, Fluid Albumin Pending, Fluid LDH Pending 10/17/16 0510: Anion Gap 7, Estimated GFR > 60, BUN/Creatinine Ratio 27.8 H, PT 19.1 H, INR 1.83 H, APTT 34 10/17/16 0500: APTT Cancelled 10/16/16 2220: APTT 46 H Impression/Plan Impression/Plan Impression/Plan: Impression 66 year old woman with decompensated acute exacerbation of heart failure. Hx of rheumatic heart disease, severe mitral stenosis. Plan -for thoracentesis today for symptom management diagnostic and threapeutic -keep off coumadin until after thoracentesis -cardiology input appreciated, f/u recommendations -monitor INR daily -f/u cardiothoracic recommendations regarding possible transfer when optimized for valvular surgery
[2016-10-17 11:00] VITALS: BP 95/64
--- NOTE | 2016-10-17 11:16 | PN- Cardiology ---
Subjective Subjective: Resting and without specific complaints. Status post left thoracentesis and breathing improved. Ventricular response rate to her atrial fibrillation rapid earlier with associated transient hypotension. Objective Vital Signs and I&Os Vital Signs Date Time Temp Pulse Resp B/P Pulse O2 O2 Flow FiO2 Ox Delivery Rate 10/17 0818 97.6 92 17 107/57 95 10/17 0000 Nasal 2.0L Cannula 10/16 2338 97.5 94 18 98/60 96 Nasal 2.0L Cannula 10/16 2123 109 102/64 10/16 2123 109 102/64 10/16 1600 Nasal 2.0L Cannula 10/16 1530 97.8 95 20 100/68 92 Nasal 2.0L Cannula Intake & Output 10/17 0800 10/17 0000 10/16 0810/16 0000 Intake Total 225 340 120 450 Output Total 225 450 250 200 900 Balance 0 -110 -250 -80 -450 Intake, IV 200 100 Intake, Oral 25 240 120 450 Number 1 1 Bowel Movements Output, Urine 225 450 250 200 900 Patient 207 lb 210 lb Weight Physical Exam: Well-developed, overweight female in no acute distress. Vital signs: See above. Neck: No JVD, no bruits. Lungs: Decreased breath sounds at the bases. Heart: S1, S2 (irregularly, irregular) with grade 1-2/6 systolic murmur best heard at the base, grade 1/6 diastolic murmur heard near the apex. No gallop or rub appreciated. PMI fifth ICS at MCL. Abdomen: Distended, nontender, positive bowel sounds. Extremities: 2+ bilateral lower extremity edema with erythema and oozing (right greater than left). Current Medications: Current Medications Sig/[place] Start time Last Medication Dose Route Stop Time Status Admin Acetaminophen 650 MG Q6P PRN 10/14 0545 AC PO Diltiazem HCl 60 MG BID 10/14 1000 AC 10/16 PO 212 Furosemide 40 MG 7:30 AM, & 4:30 PM 10/14 0730 AC 10/16 IV 1702 Heparin Sodium 25,000 UNIT Q24H 10/16 1430 AC 10/16 (Porcine) IV 1602 Sodium Chloride 500 ML Levothyroxine Sodium 0.137 MG DAILY AC 10/14 0700 AC 10/16 PO 0645 Melatonin 5 MG AT BEDTIME 10/14 2199 AC 10/15 PO 2214 Metoprolol Tartrate 100 MG BID 10/14 1000 AC 10/16 PO 2124 Nystatin 1 FRANCK BID 10/14 0033 10/16 [facility] 2126 Patient Medication 1 ED .[facility] ONE 10/16 1328 [place] Teaching ED 10/16 1329 Results Last 48 Hrs of Labs/Mics: Laboratory Tests 10/17/16 0950: Pleural pH 7.41 10/17/16 0950: Fluid WBC Pending, Fld Total RBCs Counted Pending 10/17/16 0950: Fluid Glucose Cancelled, Fluid Total Protein Cancelled 10/17/16 0950: Phlebotomy Draw Site L THORACENTESIS, Fluid Glucose Pending, Fluid Total Protein Pending, Fluid Albumin Pending, Fluid LDH Pending 10/17/16 0510: Anion Gap 7, Estimated GFR > 60, BUN/Creatinine Ratio 27.8 H, PT 19.1 H, INR 1.83 H, APTT 34 10/17/16 0500: APTT Cancelled 10/16/16 2220: APTT 46 H 10/16/16 0655: Anion Gap 10, Estimated GFR 56 L, BUN/Creatinine Ratio 25.0, Magnesium 1.8, PT 20.5 H, INR 1.97 H Assessment/Plan Assessment/Plan Mrs. Ruiz is a 66-year-old female with a long-standing history of hypertension, hypothyroidism, rheumatic heart disease with severe range mitral stenosis, pulmonary hypertension, and tricuspid regurgitation, chronic atrial fibrillation for which he is on chronic anticoagulation, as well as, some medical compliance issues who has become increasingly symptomatic from her rheumatic valvular disease/atrial fibrillation over the past couple of months with planned mitral valve replacement and tricuspid valve repair, after optimization of her clinical status. She is feeling improved following her thoracentesis and continued diuresis with a negative balance (-2173 ml + pleural fluid) since admission. She did not receive this a.m.'s diuretic dosage. Recommendations: * Continue on telemetry and present regimen. * Reassess the need for further IV diuresis in the morning. * Continue to follow-up BUN/creatinine, potassium, and magnesium closely. Replete potassium and magnesium as needed. * Warfarin remains on hold for the short-term and she received vitamin K in anticipation of left thoracentesis. * Follow-up on pulmonary recommendations. * Note abnormally low albumin and abnormally high globulin. Consider further evaluation with SPEP, etc. * DVT prophylaxis. Continue telemetry? Yes
--- NOTE | 2016-10-17 12:03 | RADIOLOGY REPORT ---
EXAMINATION:\H\ \N\XR CHEST CLINICAL INFORMATION: Status post left-sided thoracentesis. COMPARISON: Several prior chest x-rays, most recent of which is dated 10/16/2016. TECHNIQUE: AP semierect portable view of the chest was obtained. FINDINGS: The cardiomediastinal silhouette is markedly enlarged, unchanged from prior exam, consistent with dilated cardiomyopathy. Interval decrease in size of left-sided pleural effusion is seen with ill-defined opacity remaining in the left mid to lower lung and along the left major fissure, consistent with residual small volume fluid and associated airspace disease. Right lung remains fully expanded and clear. No pneumothorax is seen. Bony structures are unremarkable. IMPRESSION: 1. No pneumothorax status post left-sided thoracentesis. 2. Decrease in size of left-sided pleural effusion with persistent associated airspace disease in the mid and lower lung.
--- NOTE | 2016-10-17 13:08 | ULTRASOUND REPORT ---
CLINICAL HISTORY: This patient is a 66-year-old woman with recurrent left pleural effusion. The patient is referred to interventional radiology for ultrasound-guided thoracentesis. PROCEDURE: Ultrasound-guided thoracentesis. COMPARISON: Chest radiograph 10/16/2016 ACCESS: 6 Fr [id number] closed needle/catheter system. PROCEDURALIST: Dr. Renée Stovall. MEDICATIONS: 10 mL of 1% lidocaine SQ. COMPLICATIONS: None. ESTIMATED BLOOD LOSS: <5 mL. SPECIMENS: A specimen was appropriately labeled and sent to the laboratory as requested. PROCEDURE NOTE: Appropriate pre-procedure medical history and imaging studies were reviewed. Informed consent was obtained from the patient prior to the procedure. During this process, the procedure and potential alternatives were explained along with the intended outcome and benefits. The risks of the procedure, including the possibility of an unsuccessful procedure, as well as the risk of not doing the procedure, were discussed. The patient was given the opportunity to ask questions regarding the procedure and appeared competent to make decisions. A signed consent form documenting this discussion was placed in the medical record. SITE MARKING: As part of the preprocedure verification policy, a site marking procedure was initiated. Due to the nature the procedure, the insertion site could not be predetermined thus invoking the policy of exemption to site laterality and marking. Insertion site marking was performed in the procedure room in conjunction with imaging confirmation. A time-out procedure was performed. The patient was brought to the ultrasound department and placed in the seated position. Ultrasound images of the left thorax were obtained to localize a large pleural effusion. Images were permanently saved to the record. An area of the patient's left back was prepped and draped in the standard sterile fashion. 10 mL of 1% lidocaine was used to obtain local anesthesia of the skin and deeper tissues. A standard small-bore needle was introduced to sample fluid and demonstrated a safe access route. There was no evidence of traversing adjacent organs or vascular structures. A 6 Fr [id number] closed needle/catheter system was utilized for access. 1060 mL of clear dark yellow fluid was aspirated. The patient's blood pressure dropped by 20 mmHg, therefore further drainage was not pursued. The catheter was removed and a sterile dressing applied. The patient tolerated the procedure well without evidence of immediate complications. FINDINGS: Large simple left pleural effusion. IMPRESSION: Successful left ultrasound-guided therapeutic and diagnostic thoracentesis. PLAN: 1. A postprocedure chest x-ray was ordered and will be dictated separately. 2. The patient was stable after the procedure and transferred to their room with instructions after standard monitoring.
--- NOTE | 2016-10-17 14:59 | NUR ---
LATE ENTRY PT TO IR FOR THORACENTESIS AT APPROX 0930. PT RETURNED APPROX 1030. VERY DROWSY BUT ARROUSABLE AT THIS TIME. VITALS TAKEN AND CHARTED, MEDS TO BE GIVEN WHEN PATIENT IS MORE ALERT, DISCUSSED WITH DR. EMILY VERGARA. 1 LITER REMOVED, TOLERATED WELL. PT OFFERS NO COMPLAINTS AT THIS TIME, WILL CONTINUE TO MONITOR.
[2016-10-17 16:31] VITALS: BP 91/48
[2016-10-17 21:55] LABS: PTT 83 SEC (25-37)
[2016-10-17 22:00] VITALS: BP 90/68
[2016-10-18 07:51] VITALS: BP 98/62
[2016-10-18 08:16] LABS: ABSOLUTE BASOPHIL COUNT 0.1 /CUMM (0.0-0.2); ABSOLUTE EOSINOPHIL COUNT 0.1 /CUMM (0.0-0.7); ABSOLUTE GRANULOCYTE CT 4.8 /CUMM (1.4-6.5); ABSOLUTE LYMPH COUNT 1.1 /CUMM (1.2-3.4); ABSOLUTE MONOCYTE COUNT 0.7 /CUMM (0.10-0.60); BASOPHIL % 0.8 % (0.0-2.0); EOSINOPHIL % 1.9 % (0-5); GRANULOCYTE % 70.5 % (42.2-75.2); HEMATOCRIT 38.4 % (37-47); MEAN CORPUSCULAR HGB 25.9 PG (27.0-31.0); MEAN CORPUSCULAR HGB CONC 31.5 G/DL (33.0-37.0); MEAN PLATELET VOLUME 8.2 FL (7.4-10.4); PLATELET COUNT 211 /CUMM (130-400); RBC DISTRIBUTION WIDTH 19.9 % (11.5-14.5); RED BLOOD CELL CT 4.68 /CUMM (4.20-5.40); WHITE BLOOD CELL COUNT 6.7 /CUMM (4.8-10.8)
[2016-10-18 09:51] LABS: PT 16.8 SEC (9.4-12.5); PTT 97 SEC (25-37)
--- NOTE | 2016-10-18 10:22 | PN- Cardiology ---
Subjective Subjective: * Breathing is much improved following thoracentesis. * atrial fibrillation with controlled heart rate. * INR is 1.61 Objective Vital Signs and I&Os Vital Signs Date Time Temp Pulse Resp B/P Pulse O2 O2 Flow FiO2 Ox Delivery Rate 10/18 0942 108 102/80 10/18 0942 102/80 10/18 0751 97.9 108 20 98/62 95 Nasal 2.0L Cannula / 0000 94 Nasal 2.0L Cannula 10/17 2344 104 102/56 / 2215 102 90/58 10/17 2200 98.1 102 20 90/68 96 Nasal Cannula 10/17 1631 97.7 91 18 91/48 95 Nasal 2.0L Cannula 10/17 1354 105 95/64 10/17 1352 100 98/70 10/17 1100 97.7 100 22 95/64 97 Nasal 2.0L Cannula Intake & Output 10/18 1600 10/18 0800 02/04 0000 / 1600 10/17 0800 10/17 0000 Intake Total 240 425 175 225 340 Output Total 631 936 2050 225 450 Balance 65 25 -1175 0 -110 Intake, IV 25 200 100 Intake, Oral 240 425 150 25 240 Number 1 Bowel Movements Output, Other 1000 Output, Urine 175 400 350 225 450 Patient 208 lb 207 lb Weight Physical Exam: General: WD/ WN female in NAD; alert and oriented x 3 Neck: positive JVD Heart: irregularly irregular with 2/6 at the RUSB and 1/6 systolic and diastolic murmur at the LLSB Lungs: clear bilaterally Extremities: 2+ bilateral LE edema Assessment/Plan Assessment/Plan * Continue current cardiac medications including IV heparin and IV Lasix. * anticipate surgery this coming week Continue telemetry? Yes
--- NOTE | 2016-10-18 10:33 | PN- Housestaff ---
JAVI ROB,[facility] 10/18/16 1033: Subjective Follow-up For: CHF exacerbation Left-sided pleural effusion Complaints: no complaints Tele-Events Since Last Visit: A fib HR 101-108. No events Subjective: Patient seen and examined this morning. She was lying comfortably in bed in no acute distress, remains on 2 L of nasal canal oxygen satting in the 90s. Remains afebrile. No complaints. Review of Systems Constitutional: Denies: chills, fever, malaise. EENTM: Denies: visual changes, nasal congestion. Cardiovascular: Denies: chest pain, palpitations, syncope. Respiratory: Denies: cough, short of breath, sputum production. Gastrointestinal: Denies: abdominal pain, constipation, diarrhea. Genitourinary: Denies: dysuria, urgency. Objective Last 24 Hrs of Vital Signs/I&O Vital Signs Date Time Temp Pulse Resp B/P Pulse O2 O2 Flow FiO2 Ox Delivery Rate 10/19 0119 104 112/68 10/18 2316 112 102/70 10/18 1600 Nasal 2.0L Cannula 10/18 0942 108 102/80 10/18 0942 102/80 10/18 0800 Nasal 2.0L Cannula 10/18 0751 97.9 108 20 98/62 95 Nasal 2.0L Cannula Intake & Output 10/19 0800 10/19 0000 10/18 1600 Intake Total 895 Output Total 1200 Balance -305 Intake, IV 175 Intake, Oral 720 Output, Urine 1200 Physical Exam General Appearance: Alert, Oriented X3, Cooperative, No Acute Distress Skin: No Rashes HEENT: Atraumatic, PERRLA, EOMI, Mouth dry Neck: Supple, No JVD, No thryomegaly, +2 Carotid Pulse wo Bruit Lymphatic: Cervical nl Cardiovascular: Normal S1, Normal S2, Irregulary irregular heart rhythm. Lungs: Normal Air Movement, Decreased breath sounds in left lower lung lobe Abdomen: Normal Bowel Sounds, Soft, No Tenderness, No Hepatospenomegaly Neurological: Normal Speech, Normal Tone, Sensation Intact Extremities: Bilat lower limb edema +2 Current Medications: Current Medications Sig/[place] Start time Last Medication Dose Route Stop Time Status Admin Acetaminophen 650 MG Q6P PRN 10/14 0545 AC PO Diltiazem HCl 60 MG BID 10/14 1000 AC 10/18 PO 2316 Furosemide 40 MG 7:30 AM, & 4:30 PM 10/14 0730 AC 10/18 IV 1604 Heparin Sodium 25,000 UNIT Q24H 10/16 1430 AC 10/18 (Porcine) IV 1604 Sodium Chloride 500 ML Levothyroxine Sodium 0.137 MG DAILY AC 10/14 0700 AC 10/18 PO 0629 Melatonin 5 MG AT BEDTIME 10/14 2200 AC 10/15 PO 2214 Metoprolol Tartrate 100 MG BID 10/14 1000 AC 10/19 PO 0119 Nystatin 1 FRANCK BID 10/14 0033 10/18 [facility] 2314 Last 24 Hrs of Lab/Kasi Results Last 24 Hrs of Labs/Mics: Laboratory Tests 10/19/16 0100: APTT 71 H 10/18/16 1640: APTT 91 H 10/18/16 0900: APTT Cancelled 10/18/16 0900: PT 16.8 H, INR 1.61 H, APTT 97 H 10/18/16 0620: Anion Gap 7, Estimated GFR > 60, BUN/Creatinine Ratio 31.1 H, Magnesium 1.9, CBC w Diff NO MAN DIFF REQ, RBC 4.68, MCV 82.0, MCH 25.9 L, RDW 19.9 H, MPV 8.2, Gran % 70.5, Lymphocytes % 16.2 L, Monocytes % 10.6 H, Eosinophils % 1.9, Basophils % 0.8, Absolute Granulocytes 4.8, Absolute Lymphocytes 1.1 L, Absolute Monocytes 0.7 H, Absolute Eosinophils 0.1, Absolute Basophils 0.1, PUBS MCHC 31.5 L Assessment/Plan Assessment: 66 y/o F with PMHx of atrial fibrillation on warfarin, HFpEF and mitral and aortic stenosis secondary to rheumatic fever who presents from CHF clinic with bilateral lower extremity edema and weeping. #Acute exacerbation of CHF: Orthopnea, dyspnea on exertion and bilateral lower extremity edema on initial presentation consistent with CHF exacerbation. History of HFpEF and mitral and aortic stenosis 2/2 rheumatic fever. An echocardiogram was performed (08/26/2016) revealed EF of greater than 60%, severe left atrial dilatation, moderate right atrial dilatation, mild right ventricular dilatation, rheumatic/age-related valvular changes, no pericardial effusion, left pleural effusion, mildly dilated proximal ascending aorta, and markedly dilated inferior vena cava. We'll continue to monitor on telemetry floor, on IV Lasix 40 mg daily twice a day, with strict I's and O's and daily weights (urinary catheter temporarily for close I's and O's monitoring) creatnine stable. #Recurrent left-sided pleural effusion: CXR with recurrent left-sided pleural effusion filling approximately one half the left hemithorax. S/p thoracentesis on 08/28/2016 with pleural fluid studies consistent with psuedoexudative etiology. A repeat thoracentesis yesterday removed 1060 ml of clear dark fluid. #Bilateral lower extremity edema/weeping: Bilateral lower extremities with edema , redness and weeping, R >> L. Current presentation is not consistent with cellulitis as patient in the absence of warmth and tenderness on exam as well as fever and leukocytosis. #Atrial fibrillation: INR therapeutic at 2.36 on admission. Controlled ventricular response. Takes diltiazem 60 mg PO BID and warfarin 6 mg PO QD. Her coumadin has now been switched to a heparin drip as she is being prepared for mitral valve replacement/repair. She is to be scheduled soon for mitral valve repair by Stefan De Dios MD once medically stable. #Hypothyroidism: * Continue prior to admission levothyroxine 137 mcg PO AC. Diet: CHF DVT PPx: IV heparin for now pending surgery (Warfarin discontinued) CODE: FULL Problem List: 1. Recurrent left pleural effusion 2. Atrial fibrillation 3. Bilateral lower extremity edema Pain Ratin Pain Location: None Pain Goal: Remain pain free Pain Plan: mild pain pathway Tomorrow's Labs & Rationales: No labs DVT/Prophylaxis: pharmacological JORGE L ROB,[facility] 10/18/16 1053: Attending MD Review Statement Attending Statement Attending MD Statement: examined this patient, discuss w/resident/PA/ENT PHYSICIAN, agreed w/resident/PA/ENT PHYSICIAN, reviewed EMR data (avail), discussed with nursing Attending Assessment/Plan: Ms. Ruiz was seen by me, chart reviewed. Denies any active issues. no CP or SOB. Underwent thoracentesis. As per chart has scheduled valve repair surgery at [facility] in [place] next week. Appreciate cards input, rest of the plan as per Cards
--- NOTE | 2016-10-18 13:14 | PN- Pulmonary ---
Subjective HPI/Critical Care Issues: * Breathing is much improved following thoracentesis. * atrial fibrillation with controlled heart rate. * INR is 1.61 Objective Current Medications: Current Medications Sig/[place] Start time Last Medication Dose Route Stop Time Status Admin Acetaminophen 650 MG Q6P PRN 10/14 0545 AC PO Diltiazem HCl 60 MG BID 10/14 1000 AC 10/17 PO 2344 Furosemide 40 MG 7:30 AM, & 4:30 PM 10/14 0730 AC 10/18 IV 0844 Heparin Sodium 25,000 UNIT Q24H 10/16 1430 AC 10/17 (Porcine) IV 1807 Sodium Chloride 500 ML Levothyroxine Sodium 0.137 MG DAILY AC 10/14 0700 AC 10/18 PO 0629 Melatonin 5 MG AT BEDTIME 10/14 2200 AC 10/15 PO 2214 Metoprolol Tartrate 100 MG BID 10/14 1000 AC 10/18 PO 0942 Nystatin 1 FRANCK BID 10/14 0033 AC 10/18 TOP 0943 Potassium Chloride 40 MEQ ONCE ONE 10/17 1430 DC 10/17 PO 10/17 1431 1807 Laboratory Tests 10/18 10/18 10/18 0900 0900 0620 Chemistry Sodium (137 - 145 mmol/L) 140 Potassium (3.5 - 5.1 mmol/L) 4.1 Chloride (98 - 107 mmol/L) 97 L Carbon Dioxide (22 - 30 mmol/L) 36 H Anion Gap (5 - 16) 7 BUN (7 - 17 mg/dL) 28 H Creatinine (0.5 - 1.0 mg/dL) 0.9 Estimated GFR (>60 ml/min) > 60 BUN/Creatinine Ratio (7 - 25 %) 31.1 H Magnesium (1.6 - 2.3 mg/dL) 1.9 Coagulation PT (9.4 - 12.5 SEC) 16.8 H INR (0.90 - 1.19) 1.61 H APTT (25 - 37 SEC) Cancelled 97 H Hematology CBC w Diff NO MAN DIFF REQ WBC (4.8 - 10.8 /CUMM) 6.7 RBC (4.20 - 5.40 /CUMM) 4.68 Hgb (12.0 - 16.0 G/DL) 12.1 Hct (37 - 47 %) 38.4 MCV (81.0 - 99.0 FL) 82.0 MCH (27.0 - 31.0 PG) 25.9 L RDW (11.5 - 14.5 %) 19.9 H Plt Count (130 - 400 /CUMM) 211 MPV (7.4 - 10.4 FL) 8.2 Gran % (42.2 - 75.2 %) 70.5 Lymphocytes % (20.5 - 51.1 %) 16.2 L Monocytes % (1.7 - 9.3 %) 10.6 H Eosinophils % (0 - 5 %) 1.9 Basophils % (0.0 - 2.0 %) 0.8 Absolute Granulocytes (1.4 - 6.5 /CUMM) 4.8 Absolute Lymphocytes (1.2 - 3.4 /CUMM) 1.1 L Absolute Monocytes (0.10 - 0.60 /CUMM) 0.7 H Absolute Eosinophils (0.0 - 0.7 /CUMM) 0.1 Absolute Basophils (0.0 - 0.2 /CUMM) 0.1 PUBS MCHC (33.0 - 37.0 G/DL) 31.5 L 10/17 10/17 10/17 10/17 2115 0950 0950 0950 Coagulation APTT (25 - 37 SEC) 83 H Other Body Source Fluid WBC (0 - 5 /CUMM) 743 H Fld Mesothelial Cells (%) 57 Fld Total RBCs Counted (0 /CUMM) 7596 H Fluid Glucose Cancelled Fluid Total Protein Cancelled Pleural pH (PH) 7.41 10/17 0210/17 0950 0510 0500 2220 Chemistry Sodium (137 - 145 mmol/L) 140 Potassium (3.5 - 5.1 mmol/L) 3.7 Chloride (98 - 107 mmol/L) 96 L Carbon Dioxide (22 - 30 mmol/L) 37 H Anion Gap (5 - 16) 7 BUN (7 - 17 mg/dL) 25 H Creatinine (0.5 - 1.0 mg/dL) 0.9 Estimated GFR (>60 ml/min) > 60 BUN/Creatinine Ratio (7 - 25 %) 27.8 H Coagulation PT (9.4 - 12.5 SEC) 19.1 H INR (0.90 - 1.19) 1.83 H APTT (25 - 37 SEC) 34 Cancelled 46 H Hematology Lymphocytes (%) 19 % Normal PMNs (%) 23 Misc Hematology Test (%) 1 Miscellaneous Phlebotomy Draw Site L THORACENTESIS Other Body Source Fluid Glucose (mg/dL) 83 Fluid Total Protein (g/dL) 2.8 Fluid Albumin (g/dL) 1.2 Fluid LDH (U/L) 493 Microbiology Date/Time Procedure - Status Source Growth 10/17 0950 Body Fluid Culture - RES BODY FLUID 10/17 0950 Gram Stain - RES BODY FLUID Vital Signs & I&O Last 24 Hrs of Vitals and I&O: Vital Signs Date Time Temp Pulse Resp B/P Pulse O2 O2 Flow FiO2 Ox Delivery Rate 10/18 0942 108 102/80 10/18 0942 102/80 10/18 0800 Nasal 2.0L Cannula 10/18 0751 97.9 108 20 98/62 95 Nasal 2.0L Cannula 10/18 0000 94 Nasal 2.0L Cannula 10/17 2344 104 102/56 10/17 2215 102 90/58 10/17 2200 98.1 102 20 90/68 96 Nasal Cannula 10/17 1631 97.7 91 18 91/48 95 Nasal 2.0L Cannula 10/17 1354 105 95/64 10/17 1352 100 98/70 Intake & Output 10/18 1600 10/18 0800 10/18 0000 Intake Total 240 425 Output Total 175 400 Balance 65 25 Intake, Oral 240 425 Output, Urine 175 400 Patient 208 lb Weight Impression/Plan Impression/Plan Impression/Plan: 66 year old woman with decompensated acute exacerbation of heart failure. Hx of rheumatic heart disease, severe mitral stenosis. Effusions tapped prob transudate with slightly elevated ldh Mitral stenosis Needs surg REC COnt diuresis COnt heparin SUrg next week Discussed with Dr De Dios
[2016-10-18 18:24] LABS: PTT 91 SEC (25-37)
[2016-10-18 22:00] VITALS: BP 102/70
[2016-10-19 01:38] LABS: PTT 71 SEC (25-37)
--- NOTE | 2016-10-19 08:14 | PN- Housestaff ---
JAI ROB,[facility] 10/19/16 0814: Subjective Follow-up For: CHF exacerbation Left-sided pleural effusion Subjective: Patient seen and examined this morning. She was sitting comfortably in bed in no acute distress. Remains on 2 L of nasal cannula oxygen satting mid 90s. Remains afebrile, other vitals within normal range. She had to stay on IV heparin as per surgical recommendation in anticipation of near future valve repair. Review of Systems Constitutional: Denies: chills, fever. Respiratory: Denies: cough, short of breath, sputum production. Gastrointestinal: Denies: abdominal pain, constipation, diarrhea, nausea, vomiting. Genitourinary: Denies: dysuria, frequency. Objective Last 24 Hrs of Vital Signs/I&O Vital Signs Date Time Temp Pulse Resp B/P Pulse O2 O2 Flow FiO2 Ox Delivery Rate 10/19 0817 97.5 98 20 110/78 95 Nasal 2.0L Cannula 10/19 0813 102 100/76 10/19 0119 104 112/68 10/19 0000 94 Nasal 2.0L Cannula 10/18 2316 112 102/70 10/18 2200 97.8 112 20 /70 96 Nasal 2.0L Cannula 10/18 1600 Nasal 2.0L Cannula Intake & Output 10/19 1600 10/19 0800 10/19 0000 Intake Total 278.4 518.4 Output Total Balance 278.4 518.4 Intake, IV 158.4 158.4 Intake, Oral 120 360 Patient 95.254 kg Weight Physical Exam General Appearance: Alert, Oriented X3, Cooperative, No Acute Distress Cardiovascular: Regular Rate, Normal S1, Normal S2, No Murmurs Lungs: Clear to Auscultation, Normal Air Movement, decreased breath sounds in left basilar Abdomen: Normal Bowel Sounds, Soft, No Tenderness Extremities: No Clubbing, No Cyanosis, bilateral lower ext edema 2+ Current Medications: Current Medications Sig/[place] Start time Last Medication Dose Route Stop Time Status Admin Acetaminophen 650 MG Q6P PRN 10/14 0545 AC PO Diltiazem HCl 60 MG BID 10/14 1000 AC 10/18 PO 2316 Furosemide 40 MG 7:30 AM, & 4:30 PM 10/14 0730 AC 10/19 IV 0814 Heparin Sodium 25,000 UNIT Q24H 10/16 1430 AC 10/18 (Porcine) IV 1604 Sodium Chloride 500 ML Levothyroxine Sodium 0.137 MG DAILY AC 10/14 0700 AC 10/19 PO 0743 Melatonin 5 MG AT BEDTIME 10/14 2200 AC 10/15 PO 2214 Metoprolol Tartrate 100 MG BID 10/14 1000 AC 10/19 PO 0813 Nystatin 1 FRANCK BID 10/14 0033 AC 10/19 TOP 0814 Last 24 Hrs of Lab/Kasi Results Last 24 Hrs of Labs/Mics: Laboratory Tests 10/19/16 0100: APTT 71 H 10/18/16 1640: APTT 91 H Assessment/Plan Assessment: 66 y/o F with PMHx of atrial fibrillation on warfarin, HFpEF and mitral and aortic stenosis secondary to rheumatic fever who presents from CHF clinic with bilateral lower extremity edema and weeping. #Acute exacerbation of CHF: Orthopnea, dyspnea on exertion and bilateral lower extremity edema on initial presentation consistent with CHF exacerbation. History of HFpEF and mitral and aortic stenosis 2/2 rheumatic fever. An echocardiogram was performed (08/26/2016) revealed EF of greater than 60%, severe left atrial dilatation, moderate right atrial dilatation, mild right ventricular dilatation, rheumatic/age-related valvular changes, no pericardial effusion, left pleural effusion, mildly dilated proximal ascending aorta, and markedly dilated inferior vena cava. We'll continue to monitor on telemetry floor, on IV Lasix 40 mg daily twice a day, with strict I's and O's and daily weights, #Recurrent left-sided pleural effusion: CXR with recurrent left-sided pleural effusion filling approximately one half the left hemithorax. S/p thoracentesis on 08/28/2016 with pleural fluid studies consistent with psuedoexudative etiology. s/p thoracentesis / removed 1060 ml of clear dark fluid. #Bilateral lower extremity edema/weeping: Bilateral lower extremities with edema , redness and weeping, R >> L. Current presentation is not consistent with cellulitis as patient in the absence of warmth and tenderness on exam as well as fever and leukocytosis. #Atrial fibrillation: INR therapeutic at 2.36 on admission. Controlled ventricular response. Takes diltiazem 60 mg PO BID and warfarin 6 mg PO QD. Her coumadin has now been switched to a heparin drip as she is being prepared for mitral valve replacement/repair. She is to be scheduled soon for mitral valve repair by Stefan De Dios MD once medically stable. Patient to remain on IV heparin as per Dr. De Dios recommendations in anticipation of near future mitral valve repair. #Hypothyroidism: * Continue prior to admission levothyroxine 137 mcg PO AC. Diet: CHF DVT PPx: IV heparin for now pending surgery (Warfarin discontinued) CODE: FULL Problem List: 1. Bilateral lower extremity edema 2. Atrial fibrillation 3. Recurrent left pleural effusion Pain Ratin Pain Location: None Pain Goal: Remain pain free Pain Plan: Mild pain pathway Tomorrow's Labs & Rationales: None JORGE L ROB,[facility] 10/19/16 1144: Attending MD Review Statement Attending Statement Attending MD Statement: examined this patient, discuss w/resident/PA/APPLICATIONS SUPPORT SPECIALIST, agreed w/resident/PA/APPLICATIONS SUPPORT SPECIALIST, reviewed EMR data (avail), discussed with nursing Attending Assessment/Plan: Ms. Ruiz reports doing OK. denies SOB or CP. Can d/c . rest of the plan as per resident's note.
[2016-10-19 08:17] VITALS: BP 110/78
--- NOTE | 2016-10-19 10:06 | Event Note ---
Event Note Event Note: I spoke with Dr. De Dios today regarding plan of care. Please avoid using Coumadin for anticoagulation. Ok to continue heparin gtt. He will continue to follow and provide further recommendations. This was discussed with Dr. Justice ( pgr [phone]) this morning.
--- NOTE | 2016-10-19 11:02 | PN- Cardiology ---
Subjective Subjective: * Breathing is now back to her baseline. * atrial fibrillation with controlled heart rate Objective Vital Signs and I&Os Vital Signs Date Time Temp Pulse Resp B/P Pulse O2 O2 Flow FiO2 Ox Delivery Rate 10/19 816 97.5 98 20 110/78 95 Nasal 2.0L Cannula 10/19 08 102 100/76 10/19 0119 104 112/68 10/19 0000 94 Nasal 2.0L Cannula 10/18 2316 112 102/70 10/18 2200 97.8 112 20 10270 96 Nasal 2.0L Cannula 10/18 1600 Nasal 2.0L Cannula Intake & Output 10/19 0810/19 0000 10/18 1600 10/18 0810/18 0000 Intake Total 278.4 518.4 895 240 425 Output Total 1200 175 400 Balance 278.4 518.4 -305 65 25 Intake, IV 158.4 158.4 175 Intake, Oral 120 360 720 240 425 Output, Urine 1200 175 400 Patient 210 lb 208 lb Weight Physical Exam: General: WD/ WN female in NAD; alert and oriented x 3 Neck: positive JVD Heart: irregularly irregular with 2/6 at the RUSB and 1/6 systolic and diastolic murmur at the LLSB Lungs: clear bilaterally Extremities: 2+ bilateral LE edema Assessment/Plan Assessment/Plan * Continue current cardiac medications including IV Lasix. * Anticipate surgery this coming week. Hold coumadin and begin IV heparin for stroke prophylaxis. Continue telemetry? Yes
[2016-10-19 15:59] VITALS: BP 100/80
[2016-10-19 16:09] LABS: PTT 59 SEC (25-37)
--- NOTE | 2016-10-19 18:42 | PN- Pulmonary ---
Subjective HPI/Critical Care Issues: Doing well afebrile vss Objective Current Medications: Current Medications Sig/[place] Start time Last Medication Dose Route Stop Time Status Admin Acetaminophen 650 MG Q6P PRN 10/14 0545 AC PO Diltiazem HCl 60 MG BID 10/14 1000 AC 10/18 PO 2316 Furosemide 40 MG 7:30 AM, & 4:30 PM 10/14 0730 AC 10/19 IV 1736 Heparin Sodium 3,760 UNIT ONE ONE 10/19 1730 DC 10/19 (Porcine) IV 10/19 1731 1758 Heparin Sodium 25,000 UNIT Q24H 10/16 1430 AC 10/19 (Porcine) IV 1737 Sodium Chloride 500 ML Levothyroxine Sodium 0.137 MG DAILY AC 10/14 0700 AC 10/19 PO 0743 Melatonin 5 MG AT BEDTIME 10/14 2200 AC 10/15 PO 2214 Metoprolol Tartrate 100 MG BID 10/14 1000 AC 10/19 PO 0813 Nystatin 1 FRANCK BID 10/14 0033 AC 10/19 TOP 0814 Vital Signs & I&O Last 24 Hrs of Vitals and I&O: Vital Signs Date Time Temp Pulse Resp B/P Pulse O2 O2 Flow FiO2 Ox Delivery Rate 10/19 1559 97.4 95 16 100/80 97 Nasal 2.0L Cannula 10/19 0817 97.5 98 20 110/78 95 Nasal 2.0L Cannula 10/19 0813 102 100/76 10/19 0800 Nasal 2.0L Cannula 10/19 0119 104 112/68 02/ 0000 94 Nasal 2.0L Cannula 10/18 2316 112 102/70 10/18 2200 97.8 112 20 102/70 96 Nasal 2.0L Cannula Intake & Output 10/19 1600 10/19 0800 02/05 0000 Intake Total 144 278.4 518.4 Output Total 550 Balance -406 278.4 518.4 Intake, IV 144 158.4 158.4 Intake, Oral 120 360 Number 1 Bowel Movements Output, Urine 550 Patient 210 lb Weight Impression/Plan Impression/Plan Impression/Plan: 66 year old woman with decompensated acute exacerbation of heart failure. Hx of rheumatic heart disease, severe mitral stenosis. Effusions tapped prob transudate with slightly elevated ldh Mitral stenosis Needs surg REC COnt diuresis COnt heparin SUrg next week Discussed with Dr Va deleon
[2016-10-19 23:27] LABS: PTT 70 SEC (25-37)
[2016-10-19 23:59] VITALS: BP 112/72
--- NOTE | 2016-10-20 07:29 | PN- Housestaff ---
JAI ROB,[facility] 10/20/16 0728: Subjective Follow-up For: CHF exacerbation status post left-sided thoracentesis Tele-Events Since Last Visit: Ghislaine hdz, heart rate 77-92 Subjective: Patient seen and examined this morning. She was lying comfortably in bed in no acute distress. Remains in 2 L of nasal cannula oxygen satting mid 90s. Afebrile, other vitals within normal limits. She remains on IV heparin drip, in anticipation off near future valvular repair Review of Systems Constitutional: Denies: chills, fever. Cardiovascular: Denies: chest pain, palpitations. Respiratory: Denies: cough, short of breath, sputum production. Gastrointestinal: Denies: abdominal pain, constipation, diarrhea, nausea, vomiting. Genitourinary: Denies: dysuria, frequency. Objective Last 24 Hrs of Vital Signs/I&O Vital Signs Date Time Temp Pulse Resp B/P Pulse O2 O2 Flow FiO2 Ox Delivery Rate 10/20 0939 108/70 10/20 0939 108/70 10/20 0834 97.5 94 20 104/72 95 Nasal 2.5L Cannula 10/20 0800 94 Nasal 2.0L Cannula 10/20 0000 Nasal 2.0L Cannula 10/19 2359 97.1 107 16 112/72 96 Nasal Cannula 10/19 2113 107 112/72 10/19 2113 107 112/72 10/19 1559 97.4 95 16 100/80 97 Nasal 2.0L Cannula Intake & Output 10/20 1600 10/20 0800 02/ 0000 Intake Total 510 550 Output Total 400 800 Balance 110 -250 Intake, IV 160 0 Intake, Oral 350 550 Number 0 0 Bowel Movements Output, Urine 400 800 Patient 95.028 kg Weight Physical Exam General Appearance: Alert, Oriented X3, Cooperative, No Acute Distress Cardiovascular: Regular Rate, Normal S1, Normal S2, No Murmurs Lungs: Clear to Auscultation, Normal Air Movement Abdomen: Normal Bowel Sounds, Soft, No Tenderness Extremities: bilateral lower extremity edema 2+ Current Medications: Current Medications Sig/[place] Start time Last Medication Dose Route Stop Time Status Admin Acetaminophen 650 MG Q6P PRN 10/14 0545 AC PO Diltiazem HCl 60 MG BID 10/14 1000 AC 10/20 PO 0939 Furosemide 40 MG 7:30 AM, & 4:30 PM 10/14 0730 AC 10/20 IV 0939 Heparin Sodium 3,760 UNIT ONE ONE 10/19 1730 DC 10/19 (Porcine) IV 10/19 1731 1758 Heparin Sodium 25,000 UNIT Q24H 10/16 1430 AC 10/19 (Porcine) IV 1737 Sodium Chloride 500 ML Levothyroxine Sodium 0.137 MG DAILY AC 10/14 0700 AC 10/20 PO 0629 Melatonin 5 MG AT BEDTIME 10/14 2200 AC 10/15 PO 2214 Metoprolol Tartrate 100 MG BID 10/14 1000 AC 10/20 PO 0939 Nystatin 1 FRANCK BID 10/14 0033 AC 10/20 TOP 0943 Last 24 Hrs of Lab/Kasi Results Last 24 Hrs of Labs/Mics: Laboratory Tests 10/20/16 1135: APTT 67 H 10/19/16 2245: APTT 70 H 10/19/16 1510: APTT 59 H Assessment/Plan Assessment: 66 y/o F with PMHx of atrial fibrillation on warfarin, HFpEF and mitral and aortic stenosis secondary to rheumatic fever who presents from CHF clinic with bilateral lower extremity edema and weeping. #Acute exacerbation of CHF: Orthopnea, dyspnea on exertion and bilateral lower extremity edema on initial presentation consistent with CHF exacerbation. History of HFpEF and mitral and aortic stenosis 2/2 rheumatic fever. An echocardiogram was performed (08/26/2016) revealed EF of greater than 60%, severe left atrial dilatation, moderate right atrial dilatation, mild right ventricular dilatation, rheumatic/age-related valvular changes, no pericardial effusion, left pleural effusion, mildly dilated proximal ascending aorta, and markedly dilated inferior vena cava. We'll continue to monitor on telemetry floor, on IV Lasix 40 mg daily twice a day, with strict I's and O's and daily weights, #Recurrent left-sided pleural effusion: CXR with recurrent left-sided pleural effusion filling approximately one half the left hemithorax. S/p thoracentesis on 08/28/2016 with pleural fluid studies consistent with psuedoexudative etiology. s/p thoracentesis / removed 1060 ml of clear dark fluid. #Bilateral lower extremity edema/weeping: Bilateral lower extremities with edema , redness and weeping, R >> L. Current presentation is not consistent with cellulitis as patient in the absence of warmth and tenderness on exam as well as fever and leukocytosis. #Atrial fibrillation: INR therapeutic at 2.36 on admission. Controlled ventricular response. Takes diltiazem 60 mg PO BID and warfarin 6 mg PO QD. Her coumadin has now been switched to a heparin drip as she is being prepared for mitral valve replacement/repair. She is to be scheduled soon for mitral valve repair by Stefan De Dios MD once medically stable. Patient to remain on IV heparin as per Dr. De Dios recommendations in anticipation of near future mitral valve repair. #Hypothyroidism: * Continue prior to admission levothyroxine 137 mcg PO AC. Diet: CHF DVT PPx: IV heparin for now pending surgery (Warfarin discontinued) CODE: FULL Problem List: 1. Bilateral lower extremity edema 2. Atrial fibrillation 3. Acute exacerbation of CHF (congestive heart failure) Pain Ratin Pain Location: None Pain Goal: Remain pain free Pain Plan: Mild pain pathway Tomorrow's Labs & Rationales: BEP for creatinine monitoring insetting of Autumn BRAR MD,ROSALES 10/20/16 1344: Attending MD Review Statement Attending Statement Attending MD Statement: examined this patient, discuss w/resident/PA/UMBRELLA CUTTER, agreed w/resident/PA/UMBRELLA CUTTER, reviewed EMR data (avail), discussed with nursing, discussed with case mgmt, amended to note Attending Assessment/Plan: Patient seen and examined. Sitting up on the edge of the bed. Denies shortness of breath at rest. Denies chest pain or palpitations. She does admit to shortness of breath with minimal exertion. She is afebrile and hemodynamically stable. There were no events overnight on telemetry monitoring. She is maintaining her saturations on 2-2.5 L of oxygen. Accuracy of daily weights currently not certain. She did have a negative fluid output of -377.6 mL yesterday. On examination heart sounds are regular. She has diminished entry in bilateral lung bases particularly on the left. She has 2-3+ weeping pedal edema bilaterally. She has mild erythematous changes in bilateral lower extremities. Problems: 1. Acute diastolic heart failure. Secondary to valvular heart disease. 2. Left-sided pleural effusion status post thoracocentesis is 3. Atrial fibrillation 4. Borderline hypotension Recommendations: -Case discussed with Dr. Rafaela De Dios today. We will attempt to transfer patient to [facility] tomorrow for valvular heart surgery. -Continue diuresis with Lasix 40 mg IV daily. Continue to monitor input output. -Recommend bilateral lower extremity compression wrapping to reduce edema and risk of skin breakdown. -Continue anticoagulation with IV heparin pending surgical intervention. -Continue metoprolol for rate control. -Her blood pressure is borderline. We'll monitor closely.
--- NOTE | 2016-10-20 07:53 | Discharge Summary ---
Visit Information Visit Dates Admission Date: 10/13/16 Discharge Date: 10/21/2016 Hospital Course Course Attending Physician: ROSALES BRAR M.D Primary Care Physician: MAICOL ROB,GABY Wooten Consulting Request: Consulting Specialty: Pulmonary Disease Consulting Physician: [facility] Course: Ms. Ruiz is a 66 y/o F with PMHx of atrial fibrillation on warfarin, mitral and aortic stenosis secondary to rheumatic fever, HFpEF, hypothyroidism, HTN and fatty liver, recently hospitalized here at [place] (08/25/16-08/30/16) for CHF exacerbation, who is sent from CHF clinic for leg swelling and weeping. At admission: Vitals: sats 89% RA --> 95% on 2L, HR 100-110's, BP 104/78. Exam: tachypneic, JVD+, Chest reduced to absent breath sounds to left chest upto mid half, Heart S1S2 irreg, systolic murmur+, B/l LE 3+pitting edema with serous drainage with surrounding mild erythema. Labs INR 2.36, bicarb 34, BUN 32, T. Bili 3.7, AST 37 , trop neg, proBNP 1530, EKG: Afib 106, RBBB. CXR: recurrent left sided pleural effusion filling one half left hemithorax. Echo (Aug 2016): EF > 60%, mild to moderate aortic stenosis, severe TR, moderate MS. During her hospitalization we managed the following problems: She was admitted to telemetry floor #Acute exacerbation of CHF: Orthopnea, dyspnea on exertion and bilateral lower extremity edema on initial presentation consistent with CHF exacerbation. History of HFpEF and mitral and aortic stenosis 2/2 rheumatic fever. Most recent ECHO in August 2016 with LVEF > 60% and mild concentric left ventricular hypertrophy. S/p 40 and 20 mg IV Lasix in the ED. #Recurrent left-sided pleural effusion: CXR with recurrent left-sided pleural effusion filling approximately one half the left hemithorax. S/p thoracentesis on 08/28/2016 with pleural fluid studies consistent with psuedoexudative etiology. Director Translational saw the patient who recommended diagnostic and therapeutic thoracentesis, her INR was supratherapeutic so we hold coumadin for 3 days, she had the procedure done at 10/17/2016 with removal of 1060 mL of clear dark yellow fluid. #Bilateral lower extremity edema/weeping: Bilateral lower extremities with edema , redness and weeping, R >> L. Current presentation is not consistent with cellulitis as patient in the absence of warmth and tenderness on exam as well as fever and leukocytosis. We started the patient on IV lasix 40mg BID, catheter was inserted initially inserted for strict I's anf O's which then removed 3 days prior to discharge. #Atrial fibrillation: INR therapeutic at 2.36 on admission. Controlled ventricular response. We continued home meds: diltiazem 60 mg PO BID, metoprolol 100mg BID and warfarin 6 mg PO QD. We held coumadin in anticipation of thoracentesis, after the procedure patient was started on IV heparin for coming procedure (Valve replacement/ repair) During this admission troponin was negative times 3. #Hypothyroidism: * we continued levothyroxine 137 mcg PO AC. Per thoracic surgion patient in going to [facility] tomorrow for valvular heart surgery. Surgery is schdualed at Thursday at [facility] under service. Complications: Non Allergies: Coded Allergies: No Known Allergies (04/21/16) Significant Procedures: Thoracentesis Disposition Summary Disposition Principal Diagnosis: 1. Acute diastolic heart failure. Secondary to valvular heart disease. 2. Left-sided pleural effusion status post thoracocentesis is 3. Atrial fibrillation 4. Borderline hypotension Additional Diagnosis: atrial fibrillation on warfarin, mitral and aortic stenosis secondary to rheumatic fever, HFpEF, hypothyroidism, HTN and fatty liver Discharge Disposition: other general hospital Discharge Instructions General Discharge Information Code Status: Full Code Patient's Diet: Heart healthy diet Patient's Activity: As tolerated Follow-Up Instructions/Appts: -F/U with your primary care physician in 1 week after discharge -F/U with your timber framer helper in 1 week after discharge -F/U with your slope tender after discharge. -Take your medications as prescribed Medications at Discharge Discharge Medications: Stop taking the following medications: Warfarin Sodium (Coumadin) 6 MG TABLET ORAL 5 PM Continue taking these medications: Diltiazem HCl (Cardizem) 60 MG TABLET 1 Tablet ORAL TWICE DAILY Comments: Last Taken: 10/21/16 Time: 9 AM Levothyroxine Sodium (Levothyroxine Sodium) 137 MCG TABLET 1 Tablet ORAL DAILY BEFORE BREAKFAST Comments: Last Taken: 2/7/17 Time: 6 AM Metoprolol Tartrate (Lopressor) 100 MG TABLET 1 Tablet ORAL TWICE DAILY Days = 30 Comments: Last Taken: Time: Furosemide (Furosemide) 40 MG TABLET 1 Tablet ORAL DAILY Qty = 30 Comments: Last Taken: 10/21/16 Time: 9 AM IV LASIX GIVEN AT [facility] Start taking the following new medications: Heparin (Heparin-1/2NS 25,000 Units/500) 25,000 UNIT/500 ML (50 UNIT/ML) IV.SOLN 25,000 Units INTRAVEN EVERY 24 HOURS Qty = 1 No Refills Comments: HEPARIN GTT AT 22.7 ML/HR LAST PTT WAS 76 NEXT PTT 1130 AM Copies To: ROSALES BRRA M.D Attending MD Review Statement Documenting Attending: ROSALES BRAR M.D Other Findings: I have reviewed the discharge summary.
[2016-10-20 08:34] VITALS: BP 104/72
--- NOTE | 2016-10-20 10:56 | PN- Pulmonary ---
Subjective HPI/Critical Care Issues: pt seen and examined stable from respiratory perspective no events awaiting evaluation regarding surgical plan Objective Current Medications: Current Medications Sig/[place] Start time Last Medication Dose Route Stop Time Status Admin Acetaminophen 650 MG Q6P PRN 10/14 0545 AC PO Diltiazem HCl 60 MG BID 10/14 1000 AC 10/20 PO 0939 Furosemide 40 MG 7:30 AM, & 4:30 PM 10/14 0730 AC 10/20 IV 0939 Heparin Sodium 3,760 UNIT ONE ONE 10/19 1730 DC 10/19 (Porcine) IV 10/19 1731 1758 Heparin Sodium 25,000 UNIT Q24H 10/16 1430 AC 10/19 (Porcine) IV 1737 Sodium Chloride 500 ML Levothyroxine Sodium 0.137 MG DAILY AC 10/14 0700 AC 10/20 PO 0629 Melatonin 5 MG AT BEDTIME 10/14 2200 AC 10/15 PO 2214 Metoprolol Tartrate 100 MG BID 10/14 1000 AC 10/20 PO 0939 Nystatin 1 FRANCK BID 10/14 0033 AC 10/20 TOP 0943 Vital Signs & I&O Last 24 Hrs of Vitals and I&O: Vital Signs Date Time Temp Pulse Resp B/P Pulse O2 O2 Flow FiO2 Ox Delivery Rate 10/20 0939 108/70 10/20 0939 108/70 10/20 0834 97.5 94 20 104/72 95 Nasal 2.5L Cannula 10/20 0000 Nasal 2.0L Cannula 10/19 2359 97.1 107 16 112/72 96 Nasal Cannula 10/19 2113 107 112/72 10/19 2113 107 112/72 10/19 1559 97.4 95 16 100/80 97 Nasal 2.0L Cannula Intake & Output 10/20 1600 10/20 0800 10/20 0000 Intake Total 510 550 Output Total 400 800 Balance 110 -250 Intake, IV 160 0 Intake, Oral 350 550 Number 0 0 Bowel Movements Output, Urine 400 800 Patient 210 lb Weight Exam Other Physical Findings: gen awake and alert heent ncat cvs s1, s2, +murmur lungs diminished bs on left and right base, dullness to percussion on left mid chest abd soft bs+ ext weeping serous fluid, edema Results Last 24 Hrs of Lab Results: Laboratory Tests 10/19/16 2245: APTT 70 H 10/19/16 1510: APTT 59 H Impression/Plan Impression/Plan Impression/Plan: Impression 66 year old woman with decompensated acute exacerbation of heart failure. Hx of rheumatic heart disease, severe mitral stenosis. Plan -s/p thoracentsis -heparin gtt in anticipation of surgery -cardiology input appreciated, f/u recommendations -f/u cardiothoracic recommendations regarding possible transfer when optimized for valvular surgery
[2016-10-20 12:22] LABS: PTT 67 SEC (25-37)
[2016-10-20 16:12] VITALS: BP 100/82
[2016-10-21 00:16] LABS: PTT 76 SEC (25-37)
[2016-10-21 00:33] VITALS: BP 110/80
--- NOTE | 2016-10-21 07:23 | PN- Housestaff ---
JAI ROB,[facility] 10/21/16 0723: Subjective Follow-up For: CHF exacerbation status post left-sided thoracentesis Tele-Events Since Last Visit: Ghislaine hdz, heart rate between 72-91, no acute overnight events Subjective: Patient seen and examined this morning. She was lying comfortably in bed in no acute distress. Remains on 2 L of nasal cannula oxygen satting in the 90s. Has been afebrile, other vitals stable, labs within normal limits. No other complaints Review of Systems Constitutional: Denies: chills, fever. Cardiovascular: Denies: chest pain, palpitations. Respiratory: Reports: short of breath. Denies: cough, sputum production. Gastrointestinal: Denies: abdominal pain, nausea. Genitourinary: Denies: dysuria, frequency. Objective Last 24 Hrs of Vital Signs/I&O Vital Signs Date Time Temp Pulse Resp B/P Pulse O2 O2 Flow FiO2 Ox Delivery Rate 10/21 0905 99 102/72 10/21 0740 97.6 94 19 100/76 96 Nasal 2.0L Cannula 10/21 0033 97.5 80 20 110/80 95 Nasal 2.5L Cannula 10/21 0000 Nasal 2.0L Cannula 10/20 2136 97 110/80 10/20 2136 97 110/80 10/20 1612 97.3 82 20 100/82 93 10/20 1600 95 Nasal 2.0L Cannula Intake & Output 10/21 1600 10/21 0800 10/21 0000 Intake Total 231.6 360 Output Total 275 290 Balance -43.4 70 Intake, IV 181.6 20 Intake, Oral 50 340 Output, Urine 275 290 Patient 94.347 kg Weight Physical Exam General Appearance: Alert, Oriented X3, Cooperative, No Acute Distress Cardiovascular: Normal S1, Normal S2, No Murmurs, irregularly irregular Lungs: Clear to Auscultation, Normal Air Movement, decreased breath sounds in left lower lung Abdomen: Normal Bowel Sounds, Soft, No Tenderness Extremities: No Clubbing, No Cyanosis, bilateral lower extremity wrapped Current Medications: Current Medications Sig/[place] Start time Last Medication Dose Route Stop Time Status Admin Acetaminophen 650 MG Q6P PRN 10/14 0545 AC PO Diltiazem HCl 60 MG BID 10/14 1000 AC 10/21 PO 0905 Furosemide 40 MG 7:30 AM, & 4:30 PM 10/14 0730 AC 10/21 IV 0905 Heparin Sodium 25,000 UNIT Q24H 10/16 1430 AC 10/20 (Porcine) IV 1732 Sodium Chloride 500 ML Levothyroxine Sodium 0.137 MG DAILY AC 10/14 0700 AC 10/21 PO 0614 Melatonin 5 MG AT BEDTIME 10/14 2200 AC 10/15 PO 2214 Metoprolol Tartrate 100 MG BID 10/14 1000 AC 10/20 PO 2136 Nystatin 1 FRANCK BID 10/14 0033 AC 10/21 TOP 0905 Last 24 Hrs of Lab/Kasi Results Last 24 Hrs of Labs/Mics: Laboratory Tests 10/21/16 0615: Anion Gap 8, Estimated GFR > 60, BUN/Creatinine Ratio 30.0 H, Magnesium 1.8, PT 14.9 H, INR 1.42 H 10/20/16 2340: APTT 76 H 10/20/16 1135: APTT 67 H Assessment/Plan Assessment: 66 y/o F with PMHx of atrial fibrillation on warfarin, HFpEF and mitral and aortic stenosis secondary to rheumatic fever who presents from CHF clinic with bilateral lower extremity edema and weeping. #Acute exacerbation of CHF: Orthopnea, dyspnea on exertion and bilateral lower extremity edema on initial presentation consistent with CHF exacerbation. History of HFpEF and mitral and aortic stenosis 2/2 rheumatic fever. An echocardiogram was performed (08/26/2016) revealed EF of greater than 60%, severe left atrial dilatation, moderate right atrial dilatation, mild right ventricular dilatation, rheumatic/age-related valvular changes, no pericardial effusion, left pleural effusion, mildly dilated proximal ascending aorta, and markedly dilated inferior vena cava. We'll continue to monitor on telemetry floor, on IV Lasix 40 mg daily twice a day, with strict I's and O's and daily weights, Patient to be transferred to [facility] for valvular repair which is scheduled for Thursday. #Recurrent left-sided pleural effusion: CXR with recurrent left-sided pleural effusion filling approximately one half the left hemithorax. S/p thoracentesis on 08/28/2016 with pleural fluid studies consistent with psuedoexudative etiology. s/p thoracentesis / removed 1060 ml of clear dark fluid. #Bilateral lower extremity edema/weeping: Bilateral lower extremities with edema , redness and weeping, R >> L. Current presentation is not consistent with cellulitis as patient in the absence of warmth and tenderness on exam as well as fever and leukocytosis. #Atrial fibrillation: INR therapeutic at 2.36 on admission. Controlled ventricular response. Takes diltiazem 60 mg PO BID and warfarin 6 mg PO QD. Her coumadin has now been switched to a heparin drip as she is being prepared for mitral valve replacement/repair. She is to be scheduled soon for mitral valve repair by Stefan De Dios MD once medically stable. Patient to remain on IV heparin as per Dr. De Dios recommendations in anticipation of mitral valve repair on thursday #Hypothyroidism: * Continue prior to admission levothyroxine 137 mcg PO AC. Diet: CHF DVT PPx: IV heparin for now pending surgery (Warfarin discontinued) CODE: FULL Problem List: 1. Bilateral lower extremity edema 2. Atrial fibrillation Pain Ratin Pain Location: None Pain Goal: Remain pain free Pain Plan: Mild pain pathway Tomorrow's Labs & Rationales: None patient to be transferred Consulting Request: Consulting Specialty: Pulmonary Disease Consulting Physician: Discharge Plan Discharge Disposition: transfer to another hosp Stable for Discharge? Yes Anticipated Discharge (Day): today If Discharged Today/In 24 Hrs: W-10/discharge paper done, DC summary done, CMR done ROSALES BRAR MD 10/21/16 1039: Attending MD Review Statement Attending Statement Attending MD Statement: examined this patient, discuss w/resident/PA/ADJUNCT ENGLISH INSTRUCTOR, agreed w/resident/PA/ADJUNCT ENGLISH INSTRUCTOR, discussed with family, reviewed EMR data (avail), discussed with nursing, discussed with case mgmt, amended to note Attending Assessment/Plan: Patient seen and examined. Resting comfortably and not in any acute distress. No issues overnight. No events on telemetry. She remains in atrial fibrillation with controlled ventricular response. She denies any chest pain or shortness of breath at rest or she continues to get easily dyspneic with mild exertion. Arrangements have been made by Stefan De Dios MD to transfer the patient to [facility] for repair of severe mitral valve stenosis. Patient will be transferred today to the cardiothoracic surgery service at [facility]. Surgery is tentatively planned for the end of the week. Patient and son are aware and in agreement with the plan.
[2016-10-21 07:40] VITALS: BP 100/76
[2016-10-21] MEDS ORDERED: HEPARIN-1/25000 UNI1 IV (07:49)
[2016-10-21 08:22] LABS: PT 14.9 SEC (9.4-12.5)
[2016-10-21 09:05] VITALS: BP 102/72
--- NOTE | 2016-10-21 10:07 | PN- Pulmonary ---
Subjective HPI/Critical Care Issues: pt seen and examined comfortable family at bedside overall feeling better anticipating surgery Objective Current Medications: Current Medications Sig/[place] Start time Last Medication Dose Route Stop Time Status Admin Acetaminophen 650 MG Q6P PRN 10/14 0545 AC PO Diltiazem HCl 60 MG BID 10/14 1000 AC 10/21 PO 0905 Furosemide 40 MG 7:30 AM, & 4:30 PM 10/14 0730 AC 10/21 IV 0905 Heparin Sodium 25,000 UNIT Q24H 10/16 1430 AC 10/20 (Porcine) IV 1732 Sodium Chloride 500 ML Levothyroxine Sodium 0.137 MG DAILY AC 10/14 0700 AC 10/21 PO 0614 Melatonin 5 MG AT BEDTIME 10/14 2200 AC 10/15 PO 2214 Metoprolol Tartrate 100 MG BID 10/14 1000 AC 10/20 PO 2136 Nystatin 1 FRANCK BID 10/14 0033 AC 10/21 TOP 0905 Vital Signs & I&O Last 24 Hrs of Vitals and I&O: Vital Signs Date Time Temp Pulse Resp B/P Pulse O2 O2 Flow FiO2 Ox Delivery Rate 10/21 09 99 102/72 10/21 0740 97.6 94 19 100/76 96 Nasal 2.0L Cannula 10/21 0033 97.5 80 20 110/80 95 Nasal 2.5L Cannula 10/21 0000 Nasal 2.0L Cannula 10/20 2136 97 110/80 10/20 2136 97 110/80 10/20 1612 97.3 82 20 100/82 93 10/20 1600 95 Nasal 2.0L Cannula Intake & Output 10/21 1600 10/21 0800 10/21 0000 Intake Total 231.6 360 Output Total 275 290 Balance -43.4 70 Intake, IV 181.6 20 Intake, Oral 50 340 Output, Urine 275 290 Patient 208 lb Weight Exam Other Physical Findings: gen awake and alert heent ncat cvs s1, s2, +murmur lungs diminished bs on left and right base, dullness to percussion on left mid chest abd soft bs+ ext edematous Results Last 24 Hrs of Lab Results: Laboratory Tests 10/21/16 0615: Anion Gap 8, Estimated GFR > 60, BUN/Creatinine Ratio 30.0 H, Magnesium 1.8, PT 14.9 H, INR 1.42 H 10/20/16 2340: APTT 76 H 10/20/16 1135: APTT 67 H Impression/Plan Impression/Plan Impression/Plan: Impression 66 year old woman with decompensated acute exacerbation of heart failure. Hx of rheumatic heart disease, severe mitral stenosis. Plan -s/p thoracentsis -heparin gtt in anticipation of surgery -cardiology input appreciated, f/u recommendations -f/u cardiothoracic recommendations regarding possible transfer when optimized for valvular surgery -call back as needed
== END 2016-10-21 10:45 | disposition short-term general hospital (02) | DRG 291 ==
LOC: ENRESERVTM → ENRESERVDT → ERH 18:22 → 1NO 20:57 → ENPENDDIS 20:57 → ERHI 20:57 → 1NO 23:10
PROVIDERS: Dermatology; Emergency Medicine; Internal Medicine; Student in an Organized Health Care Education/Training Program; ADMIT Student in an Organized Health Care Education/Training Program
PROC: 0W9B3ZX Drainage of Left Pleural Cavity, Percutaneous Approach, Diagnostic (ICD-10-PCS; principal; 2016-10-17)
DX: I11.0 Hypertensive heart disease with heart failure (principal); J96.01 Acute respiratory failure with hypoxia; I95.9 Hypotension, unspecified; J90 Pleural effusion, not elsewhere classified; Z79.01 Long term (current) use of anticoagulants; I48.2 Chronic atrial fibrillation; I08.3 Combined rheumatic disorders of mitral, aortic and tricuspid valves; I50.33 Acute on chronic diastolic (congestive) heart failure; E03.9 Hypothyroidism, unspecified; E66.9 Obesity, unspecified; Z68.36 Body mass index [BMI] 36.0-36.9, adult
CPT/HCPCS: 1NP; 87075; 36415; 82436; 87086; 88305; 93005; 93010; 96374; J1644; J1940; J3490; P3000

== ENCOUNTER 2016-12-25 18:00 | Emergency (ER) | payer OTHER ==
[~2016-12-25] VITALS: Ht 162.6 cm; Wt 71.7 kg
[~2016-12-25 18:00] MED LIST changes: +HEPARIN-1/25000 UNI1 IV
[2016-12-25] MEDS ORDERED: METOPROLOL TART25 M1 PO (21:08)
[2016-12-25] MEDS ORDERED: COUMADIN10 M1 PO (21:09)
[2016-12-25] MEDS ORDERED: POTASSIUM CHLO20 ME2 PO (21:09)
[2016-12-25] MEDS ORDERED: LISINOPRIL2.5 M1 PO (21:09)
[2016-12-25] MEDS ORDERED: ASPIRIN EC81 M1 PO (21:10)
[2016-12-25 22:37] LABS: ABSOLUTE BASOPHIL COUNT 0 /CUMM (0.0-0.2); ABSOLUTE EOSINOPHIL COUNT 0.2 /CUMM (0.0-0.7); ABSOLUTE GRANULOCYTE CT 5.8 /CUMM (1.4-6.5); ABSOLUTE LYMPH COUNT 1.6 /CUMM (1.2-3.4); ABSOLUTE MONOCYTE COUNT 0.9 /CUMM (0.10-0.60); BASOPHIL % 0.6 % (0.0-2.0); EOSINOPHIL % 2.9 % (0-5); GRANULOCYTE % 67.3 % (42.2-75.2); HEMATOCRIT 35.2 % (37-47); MEAN CORPUSCULAR HGB 27.3 PG (27.0-31.0); MEAN CORPUSCULAR HGB CONC 32.3 G/DL (33.0-37.0); MEAN CORPUSCULAR VOLUME 84.4 FL (81.0-99.0); MEAN PLATELET VOLUME 7.2 FL (7.4-10.4); PLATELET COUNT 412 /CUMM (130-400); RED BLOOD CELL CT 4.17 /CUMM (4.20-5.40); WHITE BLOOD CELL COUNT 8.6 /CUMM (4.8-10.8)
--- NOTE | 2016-12-25 23:22 | ED AMS/SEIZURE/WEAK/DIZZY ---
History of Present Illness General Chief Complaint: Lower Extremity Problems Stated Complaint: SIB DR DENNY, "LEFT LEG FEELS WEAK" Source: patient, family, old records Exam Limitations: no limitations Vital Signs & Intake/Output Vital Signs & Intake/Output Vital Signs Date Time Temp Pulse Resp B/P Pulse O2 O2 Flow FiO2 Ox Delivery Rate 12/250 Room Air 12/25 2113 97.7 113 18 120/79 97 12/25 1818 98.7 103 20 112/78 97 Room Air Room Air ED Intake and Output 12/26 0000 12/25 1200 Intake Total Output Total Balance Patient 158 lb Weight Allergies Coded Allergies: No Known Allergies (04/21/16) Reconcile Medications Aspirin (Ecotrin*) 81 MG TABLET.DR 1 TAB PO DAILY HEART/BLOOD (Reported) Diltiazem HCl (Cardizem) 60 MG TABLET 1 TAB PO BID HEART (Reported) Furosemide 40 MG TABLET 1 TAB PO DAILY FLUID RETENTION Levothyroxine Sodium 137 MCG TABLET 1 TAB PO DAILY AC THYROID (Reported) Lisinopril 2.5 MG TABLET 1 TAB PO DAILY BP (Reported) Metoprolol Tartrate 25 MG TABLET 1 TAB PO TID BP (Reported) Potassium Chloride 20 MEQ TAB.ER.PRT 1 TAB PO DAILY SUPPLEMENT (Reported) Warfarin Sodium (Coumadin) 10 MG TABLET 1 TAB PO DAILY BLOOD THINNER ( Reported) Core Measure Meds Pre-Hospital aspirin, coumadin Triage Note: PT TO ED WITH C/O LEFT LEG WEAKNESS "I GET UP AND IT FEELS OK, THEN I TAKE MY THYROID MEDICINE AND MY LEFT LEG FEELS WEIRD". Triage Nurses Notes Reviewed? yes Onset: 2 days Duration: day(s):, gone now, intermittent Timing: recent history Severity: mild Modifying Factors: Improves With: rest. Worsens With: medication. LMP (ages 10-50): post menopausal : No Patient currently breastfeeds: No HPI: 2 days prior to admission 30 minutes after taking her thyroid medication she complains of generalized weakness especially of the left leg that resolved after 2 hours and a nap. Currently she denies fever chills nausea vomiting diarrhea abdominal pain chest pain shortness breath headache dysuria rash bleeding leg weakness change in bowel bladder habit. Past History Travel History Traveled to [place] past 21 day No Medical History Any Pertinent Medical History? 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 MOTHER, , Age 89; Cause: Hip fracture. Hx Contributory? No Review of Systems Review of Systems Constitutional: Reports: no symptoms. EENTM: Reports: no symptoms. Respiratory: Reports: no symptoms. Cardiovascular: Reports: no symptoms. GI: Reports: no symptoms. Genitourinary: Reports: no symptoms. Musculoskeletal: Reports: no symptoms. Skin: Reports: no symptoms. Neurological/Psychological: Reports: see HPI, weakness. Hematologic/Endocrine: Reports: no symptoms. Immunologic/Allergic: Reports: no symptoms. All Other Systems: Reviewed and Negative Physical Exam Physical Exam General Appearance: well developed/nourished, alert, awake, anxious, mild distress Head: atraumatic, normal appearance Eyes: Bilateral: normal appearance, PERRL, EOMI. Ears, Nose, Throat: normal pharynx, normal ENT inspection, hearing grossly normal Neck: normal inspection, supple, full range of motion Respiratory: normal breath sounds, chest non-tender, no respiratory distress, quiet respiration, lungs clear Cardiovascular: normal peripheral pulses, irregularly irregular, norml femoral pulses equa Peripheral Pulses: 4+ carotid (R), 4+ carotid (L) Gastrointestinal: normal bowel sounds, soft, non-tender, no organomegaly Back: normal inspection, normal range of motion Extremities: normal range of motion, no ligament instability Neurologic/Psych: no motor/sensory deficits, awake, alert, oriented x 3, normal gait, normal mood/affect, 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 Skin: intact, normal color, warm/dry Lymphatic: no anterior cervical osiris Core Measures ACS in differential dx? No CVA/TIA Diagnosis: No Severe Sepsis Present: No Septic Shock Present: No Progress Differential Diagnosis: CVA/stroke, dehydration, drug intoxication, electrolyte imbalance Plan of Care: Orders Procedure Date/time Status TOTAL TRIODOTHYROXINE 12/25 2242 Complete FREE T4 12/25 2242 Complete TSH REFLEX 12/25 2158 Complete TROPONIN LEVEL 12/25 2158 Complete MAGNESIUM 12/25 2158 Complete COMPREHENSIVE METABOLIC PANEL 12/25 2158 Complete CBC WITHOUT DIFFERENTIAL 12/25 2158 Complete Laboratory Tests 12/25/162242: Anion Gap 12, Estimated GFR > 60, BUN/Creatinine Ratio 25.0, Glucose 96, Calcium 9.8, Magnesium 1.7, Total Bilirubin 1.2, AST 27, ALT 32, Alkaline Phosphatase 108, Troponin I < 0.01, Total Protein 8.3 H, Albumin 3.9, Globulin 4.4 H, Albumin/Globulin Ratio 0.9 L, Free T4 1.98, Total T3 1.56, TSH &T3 &Free T4 Intrp < 0.015 L, CBC w Diff NO MAN DIFF REQ, RBC 4.17 L, MCV 84.4, MCH 27.3, RDW 19.0 H, MPV 7.2 L, Gran % 67.3, Lymphocytes % 18.3 L, Monocytes % 10.9 H , Eosinophils % 2.9, Basophils % 0.6, Absolute Granulocytes 5.8, Absolute Lymphocytes 1.6, Absolute Monocytes 0.9 H, Absolute Eosinophils 0.2, Absolute Basophils 0, PUBS MCHC 32.3 L Diagnostic Imaging: Viewed by Me: CT Scan. Discussed w/RAD: CT Scan. Radiology Impression: no acute abnormality Initial ED EKG: none Departure Departure Time of Disposition: 26 Disposition: HOME OR SELF CARE Condition: Stable Clinical Impression Primary Impression: Left leg weakness Secondary Impressions: Hypothyroidism Qualifiers: Hypothyroidism type: unspecified Qualified Code: E03.9 - Hypothyroidism, unspecified Medication reaction Referrals: GABY ROJAS MD (PCP/Family) Additional Instructions: Call Dr. Rojas for thyroid medication adjustment. Departure Forms: Customer Survey General Discharge Information
--- NOTE | 2016-12-25 23:34 | CT SCAN REPORT ---
EXAMINATION: CT HEAD WITHOUT CONTRAST CLINICAL INFORMATION: Left leg weakness. 1 warfarin. COMPARISON: None TECHNIQUE: Contiguous axial imaging was performed from the skull base to vertex without intravenous administration of contrast. DLP: 600.71 mGy-cm FINDINGS: There is no evidence of acute intracranial hemorrhage or territorial infarction. No abnormal mass effect or midline shift is seen. Hinson to white matter differentiation is well preserved. No extra-axial fluid collections are identified. The ventricles are normal in size. There is no abnormal attenuation within the brain parenchyma. The osseous structures and soft tissues are normal. Small air-fluid level layering dependently in the left sphenoid sinus. Mastoid air cells and middle ear cavities are normally aerated. IMPRESSION: No acute intracranial pathology.
[2016-12-25 23:45] VITALS: BP 118/77
== END 2016-12-25 23:45 ==
LOC: ERH 18:00
PROVIDERS: Emergency Medicine
DX: T38.1X5A Adverse effect of thyroid hormones and substitutes, initial encounter (principal); R53.1 Weakness; E03.9 Hypothyroidism, unspecified

== ENCOUNTER 2018-03-29 11:39 | Emergency (ER) | payer OTHER ==
[~2018-03-29 11:39] MED LIST changes: +ASPIRIN EC81 M1 PO; +COUMADIN10 M1 PO; +LISINOPRIL2.5 M1 PO; +METOPROLOL TART25 M1 PO; +POTASSIUM CHLO20 ME2 PO
[2018-03-29 12:10] LABS: ABSOLUTE BASOPHIL COUNT 0 /CUMM (0.0-0.2); ABSOLUTE EOSINOPHIL COUNT 0.1 /CUMM (0.0-0.7); ABSOLUTE GRANULOCYTE CT 6.9 /CUMM (1.4-6.5); ABSOLUTE LYMPH COUNT 1.7 /CUMM (1.2-3.4); ABSOLUTE MONOCYTE COUNT 0.7 /CUMM (0.10-0.60); BASOPHIL % 0.3 % (0.0-2.0); GRANULOCYTE % 73.7 % (42.2-75.2); HEMATOCRIT 39.7 % (37-47); MEAN CORPUSCULAR HGB 29.7 PG (27.0-31.0); MEAN CORPUSCULAR HGB CONC 33.8 G/DL (33.0-37.0); MEAN CORPUSCULAR VOLUME 87.9 FL (81.0-99.0); MEAN PLATELET VOLUME 7.5 FL (7.4-10.4); PLATELET COUNT 266 /CUMM (130-400); RBC DISTRIBUTION WIDTH 14.6 % (11.5-14.5); RED BLOOD CELL CT 4.52 /CUMM (4.20-5.40); WHITE BLOOD CELL COUNT 9.4 /CUMM (4.8-10.8)
[2018-03-29 12:21] LABS: PT 26.5 SEC (9.4-12.5); PTT 40 SEC (25-37)
--- NOTE | 2018-03-29 15:42 | RADIOLOGY REPORT ---
EXAMINATION: XR CHEST CLINICAL INFORMATION: Chest pain COMPARISON: Multiple prior chest x-rays most recent prior dated 07/15/2017 TECHNIQUE: 2 views of the chest were obtained. FINDINGS: Cardiomegaly. Status post median sternotomy, mitral and aortic valvuloplasty, atrial appendage clip. Subtle pleural-based opacity noted in the lateral aspect left lower lung may represent trace effusion and associated atelectasis. Bony thorax is intact. IMPRESSION: Stable postoperative changes. Trace left effusion and adjacent pleural thickening/atelectasis.
--- NOTE | 2018-03-29 16:16 | ED GENERAL ADULT ---
History of Present Illness General Chief Complaint: Chest Pain Stated Complaint: SIB DR DENNY FOR CP Source: patient Exam Limitations: no limitations Vital Signs & Intake/Output Vital Signs & Intake/Output Vital Signs Date Time Temp Pulse Resp B/P B/P Pulse O2 O2 Flow FiO2 Mean Ox Delivery Rate 03/29 1557 115 18 157/88 97 Room Air 03/29 1554 Room Air 03/29 1149 98.0 102 18 146/90 96 Room Air Allergies Coded Allergies: No Known Allergies (04/21/16) Reconcile Medications Aspirin (Ecotrin*) 81 MG TABLET.DR 1 TAB PO DAILY HEART/BLOOD (Reported) Diltiazem HCl (Cardizem) 60 MG TABLET 1 TAB PO BID HEART (Reported) Furosemide 40 MG TABLET 1 TAB PO DAILY FLUID RETENTION Levothyroxine Sodium 137 MCG TABLET 1 TAB PO DAILY AC THYROID (Reported) Lisinopril 2.5 MG TABLET 1 TAB PO DAILY BP (Reported) Metoprolol Tartrate 25 MG TABLET 1 TAB PO TID BP (Reported) Potassium Chloride 20 MEQ TAB.ER.PRT 1 TAB PO DAILY SUPPLEMENT (Reported) Warfarin Sodium (Coumadin) 10 MG TABLET 1 TAB PO DAILY BLOOD THINNER ( Reported) Triage Note: PT SENT TO ED BY EDUIN FOR EVAL OF CHEST PAIN AND HIGH BLOOD PRESSURE READING AT HOME THIS AM. STATES PAIN INTERMITTENT, CURRENTLY WITHOUT. HX VALVE REPLACEMENT ONE YEAR AGO. DENIES SOB. BP 146/90 AT TRIAGE Triage Nurses Notes Reviewed? yes HPI: This is a 68-year-old woman with history of coronary artery disease, hypertension, hyperlipidemia, CHF, aortic stenosis status post aortic valve replacement 1 year ago, hypothyroidism, presenting emergency department with left-sided chest wall discomfort which started early this morning. Patient states that she awoke with the pain, she states that it feels like indigestion. There have been no alleviating or worsening factors. Not worse with exertion. No dyspnea, diaphoresis, nausea, radiation. Pain not reproducible. No recent travel/trauma/illness. No leg swelling. Patient has been compliant with her medications including Coumadin. Past History Travel History Traveled to [place] past 21 day No Medical History Any Pertinent Medical History? 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 MOTHER, , Age 89; Cause: Hip fracture. Hx Contributory? No Review of Systems Review of Systems Constitutional: Reports: no symptoms. EENTM: Reports: no symptoms. Respiratory: Reports: no symptoms. Cardiovascular: Reports: see HPI, chest pain. GI: Reports: no symptoms. Genitourinary: Reports: no symptoms. Musculoskeletal: Reports: no symptoms. Skin: Reports: no symptoms. Neurological/Psychological: Reports: no symptoms. Hematologic/Endocrine: Reports: no symptoms. Physical Exam Physical Exam General Appearance: well developed/nourished, no apparent distress, alert, awake , comfortable Head: atraumatic, normal appearance Eyes: Bilateral: normal appearance. Ears, Nose, Throat: normal pharynx, normal ENT inspection Neck: normal inspection, supple Respiratory: normal breath sounds, chest non-tender, no respiratory distress, lungs clear Cardiovascular: regular rate/rhythm, murmur, normal peripheral pulses Gastrointestinal: soft, non-tender Back: normal inspection, normal range of motion Extremities: normal inspection, normal capillary refill, normal range of motion, no edema Neurologic/Psych: no motor/sensory deficits, awake, alert, oriented x 3, normal mood/affect Skin: intact, normal color, warm/dry Core Measures ACS in differential dx? Yes CVA/TIA Diagnosis: No Sepsis Present: No Sepsis Focused Exam Completed? No Progress Differential Diagnoses I considered the following diagnoses in my evaluation of the patient: Clinically suspect musculoskeletal chest pain in this patient, some concern for acute coronary syndrome, lower suspicion for pulmonary embolism given lack of shortness of breath, tachycardia, leg swelling, compliance with Coumadin, or thoracic aortic disease given lack of pulse differential, suggestive historical or exam findings, in this patient based on exam, history, and presentation. Mild concern for pneumonia, although no cough, fever, shortness of breath, hypoxia, weakness to suggest this diagnosis. Plan of Care: Orders Procedure Date/time Status TROPONIN LEVEL 03/29 1613 Complete EKG 03/29 1613 Active TROPONIN LEVEL 03/29 1153 Complete PARTIAL THROMBOPLASTIN TIME 03/29 1153 Complete PROTHROMBIN TIME 03/29 1153 Complete COMPREHENSIVE METABOLIC PANEL 03/29 1153 Complete CBC WITHOUT DIFFERENTIAL 03/29 1153 Complete EKG 03/29 1142 Active Laboratory Tests 03/29/18 1620: Troponin I < 0.01 03/29/18 1156: Anion Gap 11, Estimated GFR > 60, BUN/Creatinine Ratio 24.3, Glucose 113 H, Calcium 9.7, Total Bilirubin 1.2, AST 29, ALT 31, Alkaline Phosphatase 57, Troponin I < 0.01, Total Protein 7.8, Albumin 4.2, Globulin 3.6, Albumin/ Globulin Ratio 1.2, PT 26.5 H, INR 2.41 H, APTT 40 H, CBC w Diff NO MAN DIFF REQ, RBC 4.52, MCV 87.9, MCH 29.7, MCHC 33.8, RDW 14.6 H, MPV 7.5, Gran % 73.7, Lymphocytes % 17.8 L, Monocytes % 7.2, Eosinophils % 1.0, Basophils % 0.3, Absolute Granulocytes 6.9 H, Absolute Lymphocytes 1.7, Absolute Monocytes 0.7 H, Absolute Eosinophils 0.1, Absolute Basophils 0 This is a 68-year-old female presenting after being told to seek care in the emergency department by her outpatient nuclear fuels reclamation engineer. She is well-appearing on presentation, no acute distress, has a negative troponin and nonischemic EKG. Chest x-ray shows nonspecific left sided pleural effusion. No obvious consolidation to suggest pneumonia. Well-appearing on exam with no focal exam findings. Case will be discussed with patient's nuclear fuels reclamation engineer, likely discharge home following repeat troponin. Case discussed with ; he agrees that following 2 negative troponins, with this atypical story, patient appropriate for discharge home. She will follow-up this week with outpatient provider. Repeat troponin, repeat EKG, reassuring. Return precautions provided. Initial ED EKG: normal axis, normal intervals, normal p-waves, normal QRS complex, AFIB, Rate-controlled a fib; TWI in V2 could be placement; stable on repeat. Departure Departure Time of Disposition: 1734 Disposition: HOME OR SELF CARE Condition: Stable Clinical Impression Primary Impression: Chest pain at rest Referrals: Bob ROB,Jayy Wooten (PCP/Family) Additional Instructions: Please return to the emergency department immediately if he develop worsening pain, shortness of breath, sweating, nausea, or the pain changes or travels to any other part of body. Please follow-up with your primary doctor as we discussed. I also suggested he follow-up with her nuclear fuels reclamation engineer this week for reassessment. Thank you for coming to [place] emergency department today. Departure Forms: Customer Survey General Discharge Information Critical Care Note Critical Care Note Critical Care Time: non-applicable
[2018-03-29 17:45] VITALS: BP 157/88
== END 2018-03-29 17:51 ==
LOC: ERH 11:39
PROVIDERS: Emergency Medicine
DX: R07.9 Chest pain, unspecified (principal)
CPT/HCPCS: 71046; 93005; 93010